=== PATIENT | female | born 1990 | race Caucasian/White ===

== ENCOUNTER 2020-03-23 15:20 | Emergency (ER) | payer OTHER ==
[2020-03-23 15:42] VITALS: BMI 21.4
[2020-03-23] MEDS ORDERED: LACTATED RINGERS SOLUTION 1000 ML INFUS.BAG IV ONE (16:04)
[2020-03-23] MEDS ORDERED: PROMETHAZINE HCL 25 MG SUPPOSITORY PR ONE (17:05)
[2020-03-23] MEDS ORDERED: PROMETHAZINE HCL 25 MG/1 ML VIAL IVPB ONE (17:37)
[2020-03-23] MEDS ORDERED: PROMETHAZINE HCL 25 MG/1 ML VIAL ONE (18:23)
[2020-03-23 18:44] LABS: BASO % 0.9 % (0-2.0); EOS % 0.2 % (0-4.5); HEMATOCRIT 30.5 % (32.4-45.2); HEMOGLOBIN 10.1 GM/dL (10.7-15.3); LYMPH % 16.1 % (8-40); MCH 28.1 pg (25.7-33.7); MCHC 33.1 g/dl (32.0-36.0); MEAN CELL VOLUME 84.8 fl (80-96); MEAN PLT VOLUME 8.2 fl (7.5-11.1); MONO % 4.6 % (3.8-10.2); NEUT % 78.2 % (42.8-82.8); PLATELET COUNT 299 K/MM3 (134-434); RDW 14.8 % (11.6-15.6); WHITE BLOOD COUNT 9.4 K/mm3 (4.0-10.0)
[2020-03-23 19:00] LABS: BILIRUBIN,TOTAL 1.2 mg/dL (0.2-1); BLOOD UREA NITROGEN 10.1 mg/dL (7-18); CALCIUM 7.9 mg/dL (8.5-10.1); CREATININE 0.5 mg/dL (0.55-1.3); POTASSIUM 3.7 mmol/L (3.5-5.1)
[2020-03-23] MEDS ORDERED: MAGNESIUM SULF 50% (8.12 MEQ/2 ML-1 GM VIAL) IVPB ONE (19:22)
[2020-03-23] MEDS ORDERED: MAGNESIUM 1GM/D5W - 1 GM/100 ML IVPB IVPB ONE (19:26)
[2020-03-23 19:38] VITALS: BP 127/74; PULSE 100; TEMP 99.9
[2020-03-23 20:07] LABS: VENOUS BASE EXCESS -5.6 mmol/L (-2-2); VENOUS O2 SATURATION 44.2 % (70-80); VENOUS PCO2 35.7 mmHg (38-52); VENOUS PH 7.352 (7.310-7.410)
[2020-03-23 20:08] LABS: INR 0.96 (0.83-1.09); PROTHROMBIN TIME (PATIENT) 11.3 SEC (9.7-13.0)
== END 2020-03-23 20:20 | disposition home or self-care (01) ==
LOC: JER 15:20
PROC: 3E033NZ Introduction of Analgesics, Hypnotics, Sedatives into Peripheral Vein, Percutaneous Approach (ICD-10-PCS; principal; 2020-03-23)
PROC: 3E033GC Introduction of Other Therapeutic Substance into Peripheral Vein, Percutaneous Approach (ICD-10-PCS; 2020-03-23)
DX: O21.0 Mild hyperemesis gravidarum (principal)
CPT/HCPCS: 36415; 76801-TC; 80053; 82010; 82803; 84702; 85025; 85610; 86850; 86900; 86901; 93005; 93010; 99284-25

== ENCOUNTER 2020-04-03 22:51 | Emergency (ER) | payer OTHER ==
[2020-04-03 22:54] VITALS: TEMP 98.5; BMI 22.8
[2020-04-03] MEDS ORDERED: METOCLOPRAMIDE HCL INJECTION 10 MG/2 ML VIAL IVPB STA (22:54)
[2020-04-03] MEDS ORDERED: SODIUM CHLORIDE 1,000 ML IV STA (22:54)
--- NOTE | 2020-04-03 22:57 | PDOC ---
Rapid Medical Evaluation Chief Complaint: Nausea/Vomiting Time Seen by Provider: 04/03/20 22:53 Medical Evaluation: Allergies Allergy/AdvReac Type Severity Reaction Status Date / Time No Known Allergies Allergy Verified 03/23/20 15:31 04/03/20 22:53 29 year old female c/o persistent vomiting currently 12 weeks . patient has been vomiting since this morning. patient is a IDDM . last [id number] at home. denies vaginal bleeding abdominal pain Pe; patient alert pale, lips dry A: hyperemesis? P: labs IVF reglan 04/03/20 22:56 Discharge Disposition - Diagnosis Hyperemesis gravidarum, Insulin dependent diabetes mellitus - Referrals - Patient Instructions - Post Discharge Activity
[2020-04-03] MEDS ORDERED: METOCLOPRAMIDE HCL INJECTION 10 MG/2 ML VIAL ONE (23:13)
--- NOTE | 2020-04-03 23:22 | PDOC ---
History of Present Illness - General Chief Complaint: Nausea/Vomiting Stated Complaint: 12 WEEKS Time Seen by Provider: 04/03/20 22:53 History Source: Patient Exam Limitations: No Limitations - History of Present Illness Initial Comments: 04/03/20 23:21 Hugo Patel is a 29F with PMH 12 weeks and T1DM presenting with N/V. Has been seen here at [facility] last week, sent from [place] due to no URGENT CARE PHYSICIAN ASSISTANT coverage, evaluated and treated for hyperemesis gravidarum, mulitiple different medications needed to control nausea, sent home on Zofran SL and Phenergan MN. Has been having decreased PO and almost constant nausea and vomiting, no diarrhea, has constipation, no urinary sx or vaginal discharge/bleeding, no abd pain/chest pain/SOB. First time , seen by Dr. Paola Mckoy in [place]. T1DM under control, BGM <170 most days, has had DKA in the past but currently denies feeling like DKA. Denies alcohol/drugs/smoking. NKDA No prior surgeries. Past History - Medical History Allergies/Adverse Reactions: Allergies Allergy/AdvReac Type Severity Reaction Status Date / Time No Known Allergies Allergy Verified 04/03/20 22:54 Home Medications: Ambulatory Orders Promethazine HCl [Phenergan Suppository -] 12.5 mg RC BID #21 supp.rect 03/23/20 Ondansetron [Zofran *Odt*] 4 mg GT TID PRN #21 tab.rapdis 04/04/20 Promethazine HCl [Phenergan -] 25 mg PO TID #21 tablet 04/04/20 COPD: No Diabetes: Yes Psychiatric Problems: No (uses marijuana daily) - Surgical History Cholecystectomy: Yes - Psycho-Social/Smoking History Smoking History: Never smoked Have you smoked in the past 12 months: Yes If you are a former smoker, when did you quit?: 01/2020 - Substance Abuse Hx (Audit-C & DAST Scrn) How often the patient has a drink containing alcohol: Never Score: In Men: 4 or > Positive; In Women: 3 or > Positive: 0 Screen Result (Pos requires Nsg. Audit-10AR): Negative Review of Systems - Review of Systems Able to Perform ROS?: Yes Constitutional: Yes: Chills. No: Fever, Night Sweats, Weakness HEENTM: No: Symptoms Reported Respiratory: No: Cough, Shortness of Breath, SOB with Exertion, SOB at Rest Cardiac (ROS): No: Chest Pain, Edema, Irregular Heart Rate, Lightheadedness, Palpitations, Syncope ABD/GI: Yes: Constipated, Nausea, Poor Appetite, Poor Fluid Intake, Vomiting. No: Diarrhea : No: Burning, Dysuria, Discharge Musculoskeletal: No: Symptoms Reported Integumentary: No: Symptoms Reported Neurological: Yes: Headache. No: Numbness, Paresthesia, Weakness Endocrine: Yes: Intolerance to Cold Hematologic/Lymphatic: No: Symptoms Reported All Other Systems: Reviewed and Negative *Physical Exam - Vital Signs Last Vital Signs Temp Pulse Resp BP Pulse Ox 98.5 F 110 H 18 163/94 100 04/03/20 22:52 04/03/20 22:52 04/03/20 22:52 04/03/20 22:52 04/03/20 22:52 - Physical Exam General Appearance: Yes: Nourished, Appropriately Dressed, Moderate Distress, Thin HEENT: positive: EOMI, JIN, Normal Voice, Symmetrical, Pharynx Normal, Hearing Grossly Normal. negative: Scleral Icterus (R), Scleral Icterus (L), Pharyngeal Erythema, Tonsillar Exudate, Tonsillar Erythema Neck: positive: Trachea midline, Normal Thyroid, Supple. negative: Tender, Lymphadenopathy (R), Lymphadenopathy (L) Respiratory/Chest: positive: Lungs Clear, Normal Breath Sounds. negative: Chest Tender, Respiratory Distress, Accessory Muscle Use, Crackles, Rales, Rhonchi, Stridor, Wheezing Cardiovascular: positive: Regular Rhythm, Tachycardia. negative: Edema, Murmur Gastrointestinal/Abdominal: positive: Normal Bowel Sounds, Flat, Soft, Hernia (periumbilcal), Other (no obvious uterine fundus consistent with gestational age). negative: Tender, Protuberent, Distended, Guarding, Rebound Musculoskeletal: positive: Normal Inspection. negative: CVA Tenderness, CVA Tenderness (R), CVA Tenderness (L), Muscle Spasm, Vertebral Tenderness Extremity: positive: Normal Capillary Refill, Normal Inspection, Normal Range of Motion, Pelvis Stable. negative: Tender, Pedal Edema, Swelling Integumentary: positive: Normal Color, Dry Neurologic: positive: Fully Oriented, Alert, Normal Mood/Affect, Normal Response, Motor Strength 5/5 ED Treatment Course - LABORATORY CBC & Chemistry Diagram: 04/03/20 23:30 04/03/20 23:30 Medical Decision Making - Medical Decision Making 04/03/20 23:52 Patient here for N/V for the second time in the last 2 weeks related to 12 weeks , has known history of both T1DM and hyperemesis gravidarum, BGM 150s, more likely to be -related, getting DKA labs and giving 1L NS bolus with Reglan for N/V, will CTM N/V and PO challenge when appropriate. 04/04/20 00:20 Labs notable for: - CBC WNL - CMP WNL - glucose 180s - VBG WNL - HCG 88461 - ketones 13 04/04/20 01:51 Labs WNL. No DKA. Consistent with -related emesis. Will manage. Still nauseated. Giving Zofran IV and another 1L NS. Will PO challenge and likely d/c home with SL Zofran and Phenergan. 04/04/20 03:47 Drinking water. VS improved. Feeling better. Did not know OBGYN could prescribe nausea meds, now aware. Stable for d/c home with OBGYN f/u. Discharge - Discharge Information Problems reviewed: Yes Clinical Impression/Diagnosis: Hyperemesis gravidarum, Insulin dependent diabetes mellitus - Admission No - Additional Discharge Information Prescriptions: Promethazine HCl [Phenergan -] 25 mg PO TID #21 tablet Ondansetron [Zofran *Odt*] 4 mg GT TID PRN #21 tab.rapdis PRN Reason: Nausea - Follow up/Referral - Patient Discharge Instructions Patient Printed Discharge Instructions: DI for Hyperemesis Gravidarum Additional Instructions: Today you were evalauted for nausea and vomiting with . We have given you IV fluids, Zofran, and Reglan and you felt better. At home, please try and take your anti-nausea medications and eat enough to keep you and your baby healthy. See your URGENT CARE PHYSICIAN ASSISTANT in the next week for further care. If you experience any worsening nausea, vomiting, abdominal pain, chest pain, diarrhea, or any other new or concerning symptoms, please return to the emergency room. - Post Discharge Activity Work/Back to School Note: Back to Work
[2020-04-03 23:45] LABS: VENOUS BASE EXCESS -1.3 mmol/L (-2-2); VENOUS PH 7.338 (7.310-7.410)
[2020-04-03 23:47] LABS: BASO % 1.1 % (0-2.0); EOS % 0.8 % (0-4.5); HEMATOCRIT 32.8 % (32.4-45.2); HEMOGLOBIN 10.9 GM/dL (10.7-15.3); LYMPH % 14.8 % (8-40); MCH 28.3 pg (25.7-33.7); MCHC 33.3 g/dl (32.0-36.0); MEAN PLT VOLUME 7.6 fl (7.5-11.1); MONO % 4.7 % (3.8-10.2); NEUT % 78.6 % (42.8-82.8); PLATELET COUNT 325 K/MM3 (134-434); RBC 3.86 M/mm3 (3.60-5.2); RDW 15.1 % (11.6-15.6)
--- NOTE | 2020-04-03 23:52 | PDOC ---
Documentation entered by Celia Rothman SCRIBE, acting as scribe for Judi Alvarenga MD. Judi Alvarenga MD: This documentation has been prepared by the Lorna hutchison Brenda, SCRIBE, under my direction and personally reviewed by me in its entirety. I confirm that the documentation accurately reflects all work, treatment, procedures, and medical decision making performed by me. Attending Attestation - Resident Resident Name: DylanDarron - ED Attending Attestation I have performed the following: I have examined & evaluated the patient, The case was reviewed & discussed with the resident, I agree w/resident's findings & plan, Exceptions are as noted - HPI HPI: 04/03/20 23:48 29 yo female p/w hyperemesis,She is approximately 7 weeks and is an insulin dependent diabetic - Physicial Exam PE: 04/03/20 23:49 thin 29 yo female p/w nausea and vomiting head ncat ++dry mucus membranes neck supple lungs cta b/l cvs tachycardia abdomen flat, nontender skin warm and dry neuro axox3, no gross focal neuro deficits 04/03/20 23:52 - Medical Decision Making 04/03/20 23:52 plan IVF,labs,reglan 04/03/20 23:53 04/04/20 00:20 Patient has NO pelvic Cramping or vaginal bleeding at this time Glucose is less than 200 CBC is within normal limits Patient receiving IVF, reglan no DKA imp hyperemeisis /diabetes Discharge - Discharge Information Problems reviewed: Yes Clinical Impression/Diagnosis: Hyperemesis gravidarum, Insulin dependent diabetes mellitus Condition: Improved Disposition: HOME - Additional Discharge Information Prescriptions: Promethazine HCl [Phenergan -] 25 mg PO TID #21 tablet Ondansetron [Zofran *Odt*] 4 mg SL TID #30 od.tablet - Follow up/Referral - Patient Discharge Instructions Patient Printed Discharge Instructions: DI for Hyperemesis Gravidarum Additional Instructions: Today you were evalauted for nausea and vomiting with . We have given you IV fluids, Zofran, and Reglan and you felt better. At home, please try and take your anti-nausea medications and eat enough to keep you and your baby hea lthy. See your BLOW OFF WORKER in the next week for further care. If you experience any worsening nausea, vomiting, abdominal pain, chest pain, diarrhea, or any other new or concerning symptoms, please return to the emergency room. - Post Discharge Activity Work/Back to School Note: Back to Work
[2020-04-04 00:16] LABS: ALBUMIN 3.3 g/dl (3.4-5.0); BILIRUBIN,TOTAL 0.8 mg/dL (0.2-1); BLOOD UREA NITROGEN 15.9 mg/dL (7-18); CALCIUM 9.2 mg/dL (8.5-10.1); CREATININE 0.6 mg/dL (0.55-1.3); POTASSIUM 4.1 mmol/L (3.5-5.1); TOT PROT 6.9 g/dl (6.4-8.2)
[2020-04-04] MEDS ORDERED: ONDANSETRON 4 MG/2 ML VIAL IVPB ONE (01:17)
[2020-04-04 05:56] VITALS: BP 148/88; PULSE 100
== END 2020-04-04 04:10 | disposition home or self-care (01) ==
LOC: JER 22:51
PROC: 3E0337Z Introduction of Electrolytic and Water Balance Substance into Peripheral Vein, Percutaneous Approach (ICD-10-PCS; principal; 2020-04-03)
PROC: 3E033GC Introduction of Other Therapeutic Substance into Peripheral Vein, Percutaneous Approach (ICD-10-PCS; principal; 2020-04-03)
PROC: 3E033GC Introduction of Other Therapeutic Substance into Peripheral Vein, Percutaneous Approach (ICD-10-PCS; 2020-04-04)
DX: O21.0 Mild hyperemesis gravidarum (principal); O24.011 Pre-existing type 1 diabetes mellitus, in pregnancy, first trimester; Z3A.12 12 weeks gestation of pregnancy
CPT/HCPCS: 36415; 80053; 82010; 82803; 82962; 84702; 85025; 99284-25

== ENCOUNTER 2020-05-22 08:34 | Inpatient (IN) | payer OTHER ==
--- NOTE | 2020-05-22 08:54 | PDOC ---
History of Present Illness - General Stated Complaint: NAUSEA VOMITING - History of Present Illness Initial Comments: 29 yo female A0 and PMH of IDDM who is 19 weeks presents with nausea/vomiting. She has been having n/v since her started but it has worsened in the last 2 weeks. Her vomit has been bilious at times but she denies blood. She endorses fevers, vertigo, and constipation. She denies abdominal pain, vaginal bleeding, cp, sob. She last took her insulin 24 hour ago in the morning. She was seen at [facility] 7 hours ago who prescribed her with zofran, reglan, and meclizine without complete resolution of her symptoms and thus transfered here for our COMMERCIAL PARTS PROFESSIONAL services. Her last zofran was at 3am. She was found to be hypokalemic and given K supplement. She follows with Dr. Lizbeth Mckoy for COMMERCIAL PARTS PROFESSIONAL. 05/22/20 09:43 Past History - Medical History Allergies/Adverse Reactions: Allergies Allergy/AdvReac Type Severity Reaction Status Date / Time apples Allergy Uncoded 05/22/20 08:50 Home Medications: Ambulatory Orders Analogue 0 units SQ QID 05/22/20 Insulin Glargine,Hum.rec.anlog [Basaglar Kwikpen U-100] 16 unit SQ HS 05/22/20 COPD: No Diabetes: Yes Psychiatric Problems: No (uses marijuana daily) - Surgical History Cholecystectomy: Yes - Psycho-Social/Smoking History Smoking History: Never smoked Have you smoked in the past 12 months: Yes If you are a former smoker, when did you quit?: 01/2020 Review of Systems - Review of Systems Constitutional: Yes: Chills. No: Fever HEENTM: No: Recent change in vision, Double Vision Respiratory: No: Cough, Orthopnea, Shortness of Breath Cardiac (ROS): No: Chest Pain, Palpitations : Yes: Discharge. No: Burning, Dysuria, Hematuria Musculoskeletal: No: Joint Swelling, Muscle Pain Integumentary: No: Erythema, Flushing, Lesions Neurological: Yes: Dizziness. No: Headache, Numbness, Weakness Psychiatric: No: Anxiety, Depression, Mood Swings Endocrine: No: Intolerance to Cold, Intolerance to Heat, Increased Urine *Physical Exam - Physical Exam General Appearance: Yes: Appropriately Dressed, Apparent Distress HEENT: positive: Normal ENT Inspection. negative: EOMI Neck: negative: Tender, Rigid Respiratory/Chest: positive: Lungs Clear, Normal Breath Sounds. negative: Respiratory Distress Cardiovascular: positive: Regular Rhythm, Regular Rate, S1, S2 Gastrointestinal/Abdominal: positive: Flat, Soft. negative: Tender Musculoskeletal: positive: Normal Inspection. negative: CVA Tenderness Extremity: positive: Normal Capillary Refill, Normal Inspection, Normal Range of Motion Integumentary: positive: Normal Color, Dry, Warm Neurologic: positive: Fully Oriented, Alert, Normal Mood/Affect ED Treatment Course - LABORATORY CBC & Chemistry Diagram: 05/22/20 09:15 05/22/20 09:15 Medical Decision Making - Medical Decision Making 29 yo female A0 and PMH of IDDM who is 19 weeks presents with nausea/vomiting for 2 weeks after being transferred from [facility]. 1L fluid bolus Pt has prolonged QT and will not receive any more zofran. Pt has hypokalemia and given replacement. Discussed the case with Dr. Singh who wanted her admitted under her service. POCUS shows normal HR and movement with head diameter consistent with 19 weeks gestation. Discharge - Discharge Information Problems reviewed: Yes Clinical Impression/Diagnosis: Hyperemesis gravidarum Condition: Stable - Admission Yes - Follow up/Referral - Patient Discharge Instructions - Post Discharge Activity
[2020-05-22] MEDS ORDERED: SODIUM CHLORIDE 500 ML IV STA (09:14)
[2020-05-22] MEDS ORDERED: ONDANSETRON 4 MG/2 ML VIAL IVPUSH ONE (09:32)
--- NOTE | 2020-05-22 10:18 | EKG ---
Test Reason : Blood Pressure : / mmHG Vent. Rate : 102 BPM Atrial Rate : 441 BPM P-R Int : 000 ms QRS Dur : 092 ms QT Int : 422 ms P-R-T Axes : -10 -08 178 degrees QTc Int : 550 ms ATRIAL FLUTTER LEFT VENTRICULAR HYPERTROPHY WITH REPOLARIZATION ABNORMALITY INFERIOR INFARCT , AGE UNDETERMINED PROLONGED QT ABNORMAL ECG WHEN COMPARED WITH ECG OF 23-MAR-2020 16:53, ATRIAL FLUTTER HAS REPLACED SINUS RHYTHM INFERIOR INFARCT IS NOW PRESENT T WAVE INVERSION NOW EVIDENT IN LATERAL LEADS QT HAS LENGTHENED Confirmed by MD Celestino, Lenny ([id number]) on 05/22/2020 10:17:51 AM Referred By: Confirmed By:Lenny Tirado MD
[2020-05-22 11:00] LABS: HCG,QUALITATIVE URINE Positive
[2020-05-22 11:02] LABS: HEMATOCRIT 32.6 % (32.4-45.2); MCH 28.1 pg (25.7-33.7); MCHC 33.7 g/dl (32.0-36.0); MEAN CELL VOLUME 83.4 fl (80-96); MEAN PLT VOLUME 8.2 fl (7.5-11.1); PLATELET COUNT 312 K/MM3 (134-434); RBC 3.91 M/mm3 (3.60-5.2); RDW 13.6 % (11.6-15.6); WHITE BLOOD COUNT 13.5 K/mm3 (4.0-10.0)
--- NOTE | 2020-05-22 11:03 | PDOC ---
Documentation entered by John Mc SCRIBE, acting as scribe for Mimi Alvarez MD. Mimi Alvarez MD: This documentation has been prepared by the Kaya hutchison inJohn SCRIBE, under my direction and personally reviewed by me in its entirety. I confirm that the documentation accurately reflects all work, treatment, procedures, and medical decision making performed by me. Attending Attestation - Resident Resident Name: ArchanaWukatie - ED Attending Attestation I have performed the following: I have examined & evaluated the patient, The case was reviewed & discussed with the resident, I agree w/resident's findings & plan, Exceptions are as noted - HPI HPI: 05/22/20 09:54 The patient is a 29 year old female (A0, 19 weeks ) with a significant past medical history of type 1 DM who presents to the emergency department for evaluation of nausea/vomiting that began at the start of her but has worsened in the past 2 weeks. The patient reports bilious vomit associated with fevers, vertigo, and constipation. The patient went to [facility] 7 hours ago for these symptoms where she was given zofran (last given: 7 hours ago), reglan, and meclizine to minimal relief. The patient denies chest/abdominal/back pain, cough, and shortness of breath. Denies any symptoms. Denies any other symptoms. Allergies: apples Social Hx: Patient reports smoking marijuana every day. 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 Lizbeth cMkoy - Physicial Exam PE: 05/22/20 09:54 GENERAL: Awake, alert, and fully oriented, in no acute distress HEAD: No signs of trauma EYES: PERRLA, EOMI, sclera anicteric, conjunctiva clear ENT: Auricles normal inspection, hearing grossly normal, nares patent, oropharynx clear without exudates. Moist mucosa NECK: Normal ROM, supple, no lymphadenopathy, JVD, or masses LUNGS: Breath sounds equal, clear to auscultation bilaterally. No wheezes, and no crackles HEART: Regular rate and rhythm, normal S1 and S2, no murmurs, rubs or gallops ABDOMEN: Soft, nontender, normoactive bowel sounds. No guarding, no rebound. No masses EXTREMITIES: Normal range of motion, no edema. No clubbing or cyanosis. No cords, erythema, or tenderness NEUROLOGICAL: Cranial nerves II through XII grossly intact. Normal speech, normal gait SKIN: Warm, Dry, normal turgor, no rashes or lesions noted. - Medical Decision Making 05/22/20 10:51 Pt presents to the ED complaining of severe nausea and vomiting, not improved with zofran and reglan at [place]. Transferred here for OB admision. Multiple visits to the ED for similar complaints. Patient continued to feel nauseated, but will hold off on more antiemetics for now given her prolonged QT. Will continue IV hydration. Discharge - Discharge Information Problems reviewed: Yes Clinical Impression/Diagnosis: Hyperemesis gravidarum Condition: Stable - Follow up/Referral - Patient Discharge Instructions - Post Discharge Activity
[2020-05-22 11:04] LABS: EPI CELLS 31 /uL (0-25.1); HYALINE CASTS 0 /uL (0-3.1); URINE APPEARANCE CLEAR; URINE BACTERIA 766 /uL (0-1359); URINE BILIRUBIN NEGATIVE (NEGATIVE); URINE COLOR YELLOW; URINE GLUCOSE (UA) 1+ (NEGATIVE); URINE KETONE 4+ (NEGATIVE); URINE LEUK ESTERASE TRACE (NEGATIVE); URINE NITRITE NEGATIVE (NEGATIVE); URINE PROTEIN 2+ (NEGATIVE); URINE RBC 48 /uL (0-23.9); URINE WBC 24 /uL (0-25.8)
[2020-05-22 11:30] LABS: ALBUMIN 2.2 g/dl (3.4-5.0); BILIRUBIN,TOTAL 1.4 mg/dL (0.2-1); BLOOD UREA NITROGEN 11.3 mg/dL (7-18); CALCIUM 7.4 mg/dL (8.5-10.1); CREATININE 0.7 mg/dL (0.55-1.3); MAGNESIUM 1.7 mg/dL (1.8-2.4); PHOSPHOROUS 1.6 mg/dL (2.5-4.9); TOT PROT 5.3 g/dl (6.4-8.2)
[2020-05-22 11:50] LABS: POTASSIUM 2.8 mmol/L (3.5-5.1)
[2020-05-22] MEDS ORDERED: SODIUM CHLORIDE 1,000 ML IV STA (12:11)
[2020-05-22] MEDS: KCL 10 MEQ IVPB 10 MEQ/100 ML INFUS.BAG IVPB SCH ×4 (12:25→23:53)
[2020-05-22] MEDS ORDERED: MAGNESIUM SULF 50% (8.12 MEQ/2 ML-1 GM VIAL) IVPB ONE (18:21)
[2020-05-22] MEDS ORDERED: CALCIUM GLUCONATE 10% - 1,000 MG/10 ML VIAL IVPUSH ONE (18:27)
--- NOTE | 2020-05-22 18:52 | HP ---
Past Medical History - Admission Chief Complaint: Vomitting, excesive weight loss. 19 weeks. No PNC. Multiple ED visits History of Present Illness: 29 yo @ 19 weeks transfer to [facility] from [facility] ED due to lack of care, Hyperemesis gravidarum, Type 1 DM Excessive weight loss Constipation History Source: Patient, Family Member Limitations to Obtaining History: No Limitations - Past Medical History ...: 1 Endocrine: Yes: Diabetes Mellitus (Type 1 DM) - Past Surgical History Past Surgical History: Yes: None Hx Myomectomy: No Hx Transabdominal Cerclage: No - Smoking History Smoking history: Never smoked Have you smoked in the past 12 months: Yes If you are a former smoker, when did you quit?: 01/2020 - Alcohol/Substance Use Hx Alcohol Use: No History of Substance Use: reports: Marijuana - Social History Usual Living Arrangement: Yes: With Significant Other History of Recent Travel: No Home Medications - Allergies Allergies/Adverse Reactions: Allergies Allergy/AdvReac Type Severity Reaction Status Date / Time apples Allergy Uncoded 05/22/20 08:50 - Home Medications Home Medications: Ambulatory Orders Analogue 0 units SQ QID 05/22/20 Insulin Glargine,Hum.rec.anlog [Basaglar Kwikpen U-100] 16 unit SQ HS 05/22/20 Family Medical History Family History: Unremarkable Review of Systems - Review of Systems Constitutional: reports: Loss of Appetite, Weakness Eyes: reports: No Symptoms HENT: reports: No Symptoms Neck: reports: No Symptoms Cardiovascular: reports: No Symptoms Respiratory: reports: No Symptoms Gastrointestinal: reports: No Symptoms Genitourinary: reports: No Symptoms Breasts: reports: No Symptoms Reported Musculoskeletal: reports: No Symptoms Integumentary: reports: No Symptoms Endocrine: reports: No Symptoms Hematology/Lymphatic: reports: No Symptoms Psychiatric: reports: No Symptoms Physical Exam - Maternity Vital Signs: Vital Signs Temperature 98.8 F 05/22/20 15:58 Pulse Rate 106 H 05/22/20 17:24 Respiratory Rate 16 05/22/20 17:24 Blood Pressure 147/87 05/22/20 17:24 O2 Sat by Pulse Oximetry (%) 100 05/22/20 15:58 Constitutional: Yes: Anxious Neck: Yes: WNL - Abdominal Exam/OB Fundal Height: 18 - Labs Lab Results: CBC, BMP 05/22/20 09:15 05/22/20 09:15 Hemorrhage Risk Assessment - Risk Factors Risk Score: 1 Risk Level: Medium Risk Problem List - Problems (1) 19 weeks gestation of Code(s): Z3A.19 - 19 WEEKS GESTATION OF (2) No care in current Code(s): O09.30 - SUPRVSN OF PREG W INSUFFICIENT ANTENAT CARE, UNSP TRIMESTER (3) Excessive weight loss Code(s): R63.4 - ABNORMAL WEIGHT LOSS Assessment/Plan Admit to antepartum service Diabetic diet - full liquid Sliding scale FS Daily weight Consultation with medical service - insulin treatment Nutrition consultation
[2020-05-22 21:00] LABS: BILIRUBIN,TOTAL 1.4 mg/dL (0.2-1); BLOOD UREA NITROGEN 6.1 mg/dL (7-18); CALCIUM 7.3 mg/dL (8.5-10.1); CREATININE 0.5 mg/dL (0.55-1.3); MAGNESIUM 1.5 mg/dL (1.8-2.4); PHOSPHOROUS 1.4 mg/dL (2.5-4.9); TOT PROT 5.2 g/dl (6.4-8.2)
[2020-05-22 21:04] LABS: POTASSIUM 2.7 mmol/L (3.5-5.1)
[2020-05-22] MEDS ORDERED: KCL 10 MEQ IVPB 10 MEQ/100 ML INFUS.BAG IVPB SCH (21:45)
[2020-05-22] MEDS ORDERED: POTASSIUM PHOSPHATE 30 MM in SODIUM CHLORIDE 500 ML IVPB ONE (22:00)
[2020-05-23] MEDS: KCL 10 MEQ IVPB 10 MEQ/100 ML INFUS.BAG IVPB SCH ×2 (01:24→02:20)
[2020-05-23 02:04] LABS: OPIATES, URI NEGATIVE ng/ml (CUTOFF=300); PHENCYCLIDINE,URINE NEGATIVE ng/ml (CUTOFF=25); URINE BARBITURATES NEGATIVE ng/ml (CUTOFF=200)
[2020-05-23 02:16] LABS: COCAINE, UR NEGATIVE ng/ml (CUTOFF=300); METHADONE, UR NEGATIVE ng/ml (CUTOFF=300); URINE AMPHETAMINES NEGATIVE ng/ml (CUTOFF=500); URINE BENZODIAZEPINES NEGATIVE ng/ml (CUTOFF=200)
[2020-05-23] MEDS ORDERED: CALCIUM CARBONATE 650 MG TABLET PO PRN (03:44)
--- NOTE | 2020-05-23 03:44 | PN ---
Teaching Attending Note Name of Resident: Kenneth Garica ATTENDING PHYSICIAN STATEMENT I saw and evaluated the patient. I reviewed the resident's note and discussed the case with the resident. I agree with the resident's findings and plan as documented. SUBJECTIVE: OBJECTIVE: ASSESSMENT AND PLAN: Date of Service: 05/22/2020 29 year old female @ 19 weeks transfer to [facility] from [facility] ED due to lack of care, Hyperemesis gravidarum, Type 1 DM PLAN # Hyperemesis gravidarum- IV fluid hydration further management as per OB, monitor QTc with anti-emetics # Hypokalemia- replace , repeat lytes in several hours # Leukocytosis- mild for now follow, no indication for infection Thank you for the courtesy of this consult, will follow along with you
--- NOTE | 2020-05-23 06:13 | CONSULT ---
Consultation: REQUESTING PROVIDER: CONSULT REQUEST: We have been asked to medically evaluate this patient for nausea and vomiting. HISTORY OF PRESENT ILLNESS: 29 year old female patient with past medical history that includes IDDM, 19 weeks , and marijuana use, who was transferred here from [facility] due to nausea and nonbloody vomiting for 2 weeks. The patient reports vomiting greenish-yellowish fluid over 10 times per day, with no abdominal pain. She was given Zofran in [facility], which did not succeed in alleviating the patient's symptoms. She also reported being upset that a Google search by her found that Zofran may be associated with an increased risk for defects. Today, the patient reports only being able to eat 10% of her full liquid diet in the evening. She feels dehydrated, has no appetite, and has a feeling of a rapid heart rate in her chest. Her heart racing has happened from time to time for over a year, and can make the feelings of nausea worse when it happens. ECG read her heart rhythm as an atrial flutter with prolonged QTc and left ventricular hypertrophy. The patient smokes marijuana daily and reports that it gives her relief from her nausea for a few hours, but then the nausea comes back. Her last use of marijuana was 5 days ago. She denies ever having similar symptoms of nausea and vomiting in the past. REVIEW OF SYSTEMS: CONSTITUTIONAL: chills, loss of appetite, feels dehydrated Absent: no fever HEENT: Absent: no loss of smell CARDIOVASCULAR: palpitations Absent: no chest pain RESPIRATORY: Absent: no shortness of breath GASTROINTESTINAL: heart burn, nausea, vomiting greenish-yellowish fluid x10+ episodes per day Absent: no abdominal pain, no diarrhea PHYSICAL EXAMINATION Vital Signs - 24 hr 05/22/20 05/22/20 05/22/20 08:58 10:25 12:15 Temperature 98 F Pulse Rate 92 H Pulse Rate [ 94 H Radial] Respiratory 18 16 Rate Blood Pressure 142/88 Blood Pressure 132/85 [Left Arm] O2 Sat by Pulse 99 100 100 Oximetry (%) 05/22/20 05/22/20 05/22/20 15:50 15:58 17:24 Temperature 98.8 F Pulse Rate 106 H Pulse Rate [ 96 H 89 Radial] Respiratory 16 18 16 Rate Blood Pressure 147/87 Blood Pressure 136/79 136/76 [Left Arm] O2 Sat by Pulse 100 100 Oximetry (%) 05/22/20 05/23/20 05/23/20 21:52 01:41 05:19 Temperature 98.4 F 98.2 F 98.4 F Pulse Rate 100 H 84 90 Pulse Rate [ Radial] Respiratory 20 20 20 Rate Blood Pressure 143/87 141/75 154/88 Blood Pressure [Left Arm] O2 Sat by Pulse Oximetry (%) GENERAL: A&O x 3, in no acute distress, but looking very fatigued. HEAD: Normal with no signs of trauma. EYES: Pupils equal, round and reactive to light, extraocular movements intact, sclera anicteric, conjunctiva clear. No lid lag. EARS, NOSE, THROAT: Ears normal, nares patent, oropharynx clear without exudates. Dry mucous membranes. No posterior throat erythema. NECK: Normal range of motion, supple without lymphadenopathy, JVD, or masses. LUNGS: Breath sounds equal, clear to auscultation bilaterally. No wheezes, and n o crackles. No accessory muscle use. HEART: Tachycardic. Regular rhythm, normal S1 and S2 without murmur, rub or gallop. ABDOMEN: Soft, nontender, not distended, normoactive bowel sounds, no guarding, no rebound, no masses. Patient reports feeling nausea on palpation of abdomen. MUSCULOSKELETAL: Normal range of motion at all joints. No bony deformities or tenderness. UPPER EXTREMITIES: 2+ pulses, warm, well-perfused. No cyanosis. No clubbing. Cap refill <2 seconds. No peripheral edema. LOWER EXTREMITIES: 2+ pulses, warm, well-perfused. No calf tenderness. No peripheral edema. NEUROLOGICAL: Cranial nerves II-XII intact. Normal speech. Normal gait. PSYCHIATRIC: Cooperative. Good eye contact. Appropriate mood and affect. SKIN: Warm, dry, normal turgor, no rashes or lesions noted. Laboratory Results - last 24 hr 05/22/20 05/22/20 05/22/20 09:15 09:15 09:56 WBC 13.5 H RBC 3.91 Hgb 11.0 Hct 32.6 MCV 83.4 MCH 28.1 MCHC 33.7 RDW 13.6 Plt Count 312 MPV 8.2 Sodium 135 L Potassium 2.8 L* Chloride 97 L Carbon Dioxide 20 L Anion Gap 18 H BUN 11.3 Creatinine 0.7 Est GFR (CKD-EPI)AfAm 135.70 Est GFR (CKD-EPI)NonAf 117.08 POC Glucometer 156 Random Glucose 165 H Calcium 7.4 L Phosphorus 1.6 L Magnesium 1.7 L Total Bilirubin 1.4 H AST 77 H ALT 118 H Alkaline Phosphatase 87 Total Protein 5.3 L Albumin 2.2 L Urine Color Urine Appearance Urine pH Ur Specific Eden Urine Protein Urine Glucose (UA) Urine Ketones Urine Blood Urine Nitrite Urine Bilirubin Urine Urobilinogen Ur Leukocyte Esterase Urine WBC (Auto) Urine RBC (Auto) Urine Casts (Auto) U Epithel Cells (Auto) Urine Bacteria (Auto) Urine HCG, Qual Opiates Screen Methadone Screen Barbiturate Screen Phencyclidine Screen Ur Amphetamines Screen MDMA (Ecstasy) Screen Benzodiazepines Screen Cocaine Screen U Marijuana (THC) Screen 05/22/20 05/22/20 05/22/20 10:15 17:16 19:50 WBC RBC Hgb Hct MCV MCH MCHC RDW Plt Count MPV Sodium 137 Potassium 2.7 L* Chloride 100 Carbon Dioxide 21 Anion Gap 16 BUN 6.1 L Creatinine 0.5 L Est GFR (CKD-EPI)AfAm 151.59 Est GFR (CKD-EPI)NonAf 130.79 POC Glucometer 133 Random Glucose 161 H Calcium 7.3 L Phosphorus 1.4 L Magnesium 1.5 L Total Bilirubin 1.4 H AST 79 H ALT 116 H Alkaline Phosphatase 89 Total Protein 5.2 L Albumin 2.0 L Urine Color Yellow Urine Appearance Clear Urine pH 7.0 Ur Specific Eden 1.010 Urine Protein 2+ H Urine Glucose (UA) 1+ H Urine Ketones 4+ H Urine Blood 1+ H Urine Nitrite Negative Urine Bilirubin Negative Urine Urobilinogen 1.0 Ur Leukocyte Esterase Trace Urine WBC (Auto) 24 Urine RBC (Auto) 48 Urine Casts (Auto) 0 U Epithel Cells (Auto) 31 Urine Bacteria (Auto) 766 Urine HCG, Qual Positive Opiates Screen Methadone Screen Barbiturate Screen Phencyclidine Screen Ur Amphetamines Screen MDMA (Ecstasy) Screen Benzodiazepines Screen Cocaine Screen U Marijuana (THC) Screen 05/22/20 05/23/20 05/23/20 21:47 00:00 01:28 WBC RBC Hgb Hct MCV MCH MCHC RDW Plt Count MPV Sodium Potassium Chloride Carbon Dioxide Anion Gap BUN Creatinine Est GFR (CKD-EPI)AfAm Est GFR (CKD-EPI)NonAf POC Glucometer 195 162 Random Glucose Calcium Phosphorus Magnesium Total Bilirubin AST ALT Alkaline Phosphatase Total Protein Albumin Urine Color Urine Appearance Urine pH Ur Specific Eden Urine Protein Urine Glucose (UA) Urine Ketones Urine Blood Urine Nitrite Urine Bilirubin Urine Urobilinogen Ur Leukocyte Esterase Urine WBC (Auto) Urine RBC (Auto) Urine Casts (Auto) U Epithel Cells (Auto) Urine Bacteria (Auto) Urine HCG, Qual Opiates Screen Negative Methadone Screen Negative Barbiturate Screen Negative Phencyclidine Screen Negative Ur Amphetamines Screen Negative MDMA (Ecstasy) Screen Negative Benzodiazepines Screen Negative Cocaine Screen Negative U Marijuana (THC) Screen Positive A* 05/23/20 05:24 WBC RBC Hgb Hct MCV MCH MCHC RDW Plt Count MPV Sodium Potassium Chloride Carbon Dioxide Anion Gap BUN Creatinine Est GFR (CKD-EPI)AfAm Est GFR (CKD-EPI)NonAf POC Glucometer 122 Random Glucose Calcium Phosphorus Magnesium Total Bilirubin AST ALT Alkaline Phosphatase Total Protein Albumin Urine Color Urine Appearance Urine pH Ur Specific Eden Urine Protein Urine Glucose (UA) Urine Ketones Urine Blood Urine Nitrite Urine Bilirubin Urine Urobilinogen Ur Leukocyte Esterase Urine WBC (Auto) Urine RBC (Auto) Urine Casts (Auto) U Epithel Cells (Auto) Urine Bacteria (Auto) Urine HCG, Qual Opiates Screen Methadone Screen Barbiturate Screen Phencyclidine Screen Ur Amphetamines Screen MDMA (Ecstasy) Screen Benzodiazepines Screen Cocaine Screen U Marijuana (THC) Screen Active Medications Generic Name Dose Route Start Last Admin Trade Name Freq PRN Reason Stop Dose Admin Calcium Carbonate 650 mg 05/23/20 03:44 05/23/20 05:21 Calcium Carbonate - PO 650 mg ONCE PRN Administration DYSPEPSIA Diphenhydramine HCl 12.5 mg 05/22/20 22:52 05/23/20 00:32 Benadryl Injection - IVPUSH 12.5 mg Q4H PRN Administration NAUSEA AND/OR VOMITING Lactated Ringer's 1,000 mls @ 150 mls/hr 05/22/20 19:00 Lactated Ringers Solution IV ASDIR CHUY Potassium Phosphate 30 mm/ 510 mls @ 62.5 mls/hr 05/22/20 22:00 05/22/20 22:15 Sodium Chloride IVPB 05/23/20 06:09 62.5 mls/hr ONCE ONE Administration Pyridoxine HCl 100 mg 05/22/20 22:54 Vitamin B6 Injection - IM DAILY [facility]ITAL ASSESSMENT/PLAN: 29 year old female patient with past medical history that includes IDDM, 19 weeks , and marijuana use with last use 5 days ago per patient, who was transferred here from [facility] due to nausea and nonbloody vomiting for 2 weeks. 1. Hyperemesis Gravidum - Benadryl and Vitamin B6 - IV Hydration - Repeat ECG to check QTc 2. Hypokalemia - Repleted with KCl - Monitor Electrolytes # FEN - Lactated Ringers. Monitor Electrolytes. Full Liquid Diabetic Diet Visit type - Emergency Visit Emergency Visit: No - New Patient This patient is new to me today: Yes Date on this admission: 05/23/20 - Critical Care Critical Care patient: No ATTENDING PHYSICIAN STATEMENT I saw and evaluated the patient. I reviewed the resident's note and discussed the case with the resident. I agree with the resident's findings and plan as documented. SUBJECTIVE: OBJECTIVE: ASSESSMENT AND PLAN:
[2020-05-23] MEDS: LACTATED RINGERS SOLUTION 1,000 ML IV SCH ×2 (07:52→19:40)
[2020-05-23] MEDS: PYRIDOXINE HCL 100 MG/1 ML VIAL IM SCH (09:44)
[2020-05-23] MEDS ORDERED: PYRIDOXINE HCL 100 MG/1 ML VIAL IM SCH (10:00)
[2020-05-23] MEDS ORDERED: LACTATED RINGERS SOLUTION 1000 ML INFUS.BAG IV SCH (10:00)
[2020-05-23] MEDS ORDERED: CALCIUM CARBONATE 650 MG TABLET PO SCH (10:00)
[2020-05-23 10:50] LABS: BASO % 0.5 % (0-2.0); EOS % 1.4 % (0-4.5); HEMATOCRIT 29.4 % (32.4-45.2); HEMOGLOBIN 10.3 GM/dL (10.7-15.3); MCH 28.7 pg (25.7-33.7); MCHC 35.1 g/dl (32.0-36.0); MEAN CELL VOLUME 81.8 fl (80-96); MONO % 5.8 % (3.8-10.2); NEUT % 67.3 % (42.8-82.8); PLATELET COUNT 283 K/MM3 (134-434); RDW 13.8 % (11.6-15.6); WHITE BLOOD COUNT 10.3 K/mm3 (4.0-10.0)
[2020-05-23 11:14] LABS: BILIRUBIN,TOTAL 1.4 mg/dL (0.2-1); BLOOD UREA NITROGEN 3.2 mg/dL (7-18); CALCIUM 7.9 mg/dL (8.5-10.1); CREATININE 0.3 mg/dL (0.55-1.3); MAGNESIUM 1.5 mg/dL (1.8-2.4); PHOSPHOROUS 2.2 mg/dL (2.5-4.9)
[2020-05-23 11:23] LABS: POTASSIUM 2.7 mmol/L (3.5-5.1)
[2020-05-23] MEDS ORDERED: MAGNESIUM SULF 50% (8.12 MEQ/2 ML-1 GM VIAL) IVPB SCH (11:30)
[2020-05-23] MEDS ORDERED: [UNRECOGNIZED DRUG - OTHER] IVPB SCH (11:30)
[2020-05-23] MEDS ORDERED: POTASSIUM CHLORIDE IVPB SCH (11:30)
[2020-05-23] MEDS ORDERED: D5-1/2NS+40 MEQ KCL - 40 MEQ/1,000 ML INFUS.BAG IV SCH ×2 (11:30)
[2020-05-23] MEDS ORDERED: DEXTROSE IVPB SCH (11:30)
[2020-05-23] MEDS: MAGNESIUM 1GM/D5W - 1 GM/100 ML IVPB IVPB SCH ×2 (13:15→15:24)
[2020-05-23] MEDS ORDERED: POTASSIUM CHLORIDE 40 MEQ in SODIUM CHLORIDE 0.45% 1,000 ML IVPB SCH (13:30)
[2020-05-23] MEDS ORDERED: MAGNESIUM 1GM/D5W - 1 GM/100 ML IVPB IVPB SCH (13:45)
[2020-05-23] MEDS ORDERED: MAGNESIUM SULFATE IVPB SCH (13:45)
[2020-05-23] MEDS ORDERED: SODIUM CHLORIDE 0.45% IVPB SCH (13:45)
--- NOTE | 2020-05-23 14:38 | PN ---
Physical Exam: SUBJECTIVE: Patient seen and examined OBJECTIVE: Vital Signs Period Temp Pulse Resp BP Sys/Glass Pulse Ox Last 24 Hr 98 F-98.8 F 84-106 16-22 136-154/75-88 98-100 GENERAL: The patient is awake, alert, and fully oriented, in no acute distress. HEAD: Normal with no signs of trauma. EYES: PERRL, extraocular movements intact, sclera anicteric, conjunctiva clear. No ptosis. ENT: Ears normal, nares patent, oropharynx clear without exudates, moist mucous membranes. NECK: Trachea midline, full range of motion, supple. LUNGS: Breath sounds equal, clear to auscultation bilaterally, no wheezes, no crackles, no accessory muscle use. HEART: Regular rate and rhythm, S1, S2 without murmur, rub or gallop. ABDOMEN: Soft, nontender, nondistended, normoactive bowel sounds, no guarding, no rebound, no hepatosplenomegaly, no masses. EXTREMITIES: 2+ pulses, warm, well-perfused, no edema. NEUROLOGICAL: Cranial nerves II through XII grossly intact. Normal speech, gait not observed. PSYCH: Normal mood, normal affect. SKIN: Warm, dry, normal turgor, no rashes or lesions noted Laboratory Results - last 24 hr 05/22/20 05/22/20 05/22/20 17:16 19:50 21:47 WBC RBC Hgb Hct MCV MCH MCHC RDW Plt Count MPV Absolute Neuts (auto) Neutrophils % Lymphocytes % Monocytes % Eosinophils % Basophils % Nucleated RBC % Sodium 137 Potassium 2.7 L* Chloride 100 Carbon Dioxide 21 Anion Gap 16 BUN 6.1 L Creatinine 0.5 L Est GFR (CKD-EPI)AfAm 151.59 Est GFR (CKD-EPI)NonAf 130.79 POC Glucometer 133 195 Random Glucose 161 H Hemoglobin A1c % Calcium 7.3 L Phosphorus 1.4 L Magnesium 1.5 L Total Bilirubin 1.4 H AST 79 H ALT 116 H Alkaline Phosphatase 89 Total Protein 5.2 L Albumin 2.0 L TSH Free T4 Opiates Screen Methadone Screen Barbiturate Screen Phencyclidine Screen Ur Amphetamines Screen MDMA (Ecstasy) Screen Benzodiazepines Screen Cocaine Screen U Marijuana (THC) Screen 05/23/20 05/23/20 05/23/20 00:00 01:28 05:24 WBC RBC Hgb Hct MCV MCH MCHC RDW Plt Count MPV Absolute Neuts (auto) Neutrophils % Lymphocytes % Monocytes % Eosinophils % Basophils % Nucleated RBC % Sodium Potassium Chloride Carbon Dioxide Anion Gap BUN Creatinine Est GFR (CKD-EPI)AfAm Est GFR (CKD-EPI)NonAf POC Glucometer 162 122 Random Glucose Hemoglobin A1c % Calcium Phosphorus Magnesium Total Bilirubin AST ALT Alkaline Phosphatase Total Protein Albumin TSH Free T4 Opiates Screen Negative Methadone Screen Negative Barbiturate Screen Negative Phencyclidine Screen Negative Ur Amphetamines Screen Negative MDMA (Ecstasy) Screen Negative Benzodiazepines Screen Negative Cocaine Screen Negative U Marijuana (THC) Screen Positive A* 05/23/20 05/23/20 05/23/20 09:12 10:12 10:12 WBC 10.3 H RBC 3.60 Hgb 10.3 L Hct 29.4 L MCV 81.8 MCH 28.7 MCHC 35.1 RDW 13.8 Plt Count 283 MPV 8.0 Absolute Neuts (auto) 6.9 Neutrophils % 67.3 Lymphocytes % 25.0 D Monocytes % 5.8 Eosinophils % 1.4 Basophils % 0.5 Nucleated RBC % 0 Sodium Potassium Chloride Carbon Dioxide Anion Gap BUN Creatinine Est GFR (CKD-EPI)AfAm Est GFR (CKD-EPI)NonAf POC Glucometer 112 Random Glucose Hemoglobin A1c % 7.5 H Calcium Phosphorus Magnesium Total Bilirubin AST ALT Alkaline Phosphatase Total Protein Albumin TSH Free T4 Opiates Screen Methadone Screen Barbiturate Screen Phencyclidine Screen Ur Amphetamines Screen MDMA (Ecstasy) Screen Benzodiazepines Screen Cocaine Screen U Marijuana (THC) Screen 05/23/20 05/23/20 10:12 13:31 WBC RBC Hgb Hct MCV MCH MCHC RDW Plt Count MPV Absolute Neuts (auto) Neutrophils % Lymphocytes % Monocytes % Eosinophils % Basophils % Nucleated RBC % Sodium 134 L Potassium 2.7 L* Chloride 98 Carbon Dioxide 21 Anion Gap 15 BUN 3.2 L Creatinine 0.3 L Est GFR (CKD-EPI)AfAm 179.33 Est GFR (CKD-EPI)NonAf 154.73 POC Glucometer 144 Random Glucose 122 H Hemoglobin A1c % Calcium 7.9 L Phosphorus 2.2 L Magnesium 1.5 L Total Bilirubin 1.4 H AST 65 H ALT 106 H Alkaline Phosphatase 86 Total Protein 5.0 L Albumin 2.0 L TSH 1.12 Free T4 1.57 H Opiates Screen Methadone Screen Barbiturate Screen Phencyclidine Screen Ur Amphetamines Screen MDMA (Ecstasy) Screen Benzodiazepines Screen Cocaine Screen U Marijuana (THC) Screen Active Medications Generic Name Dose Route Start Last Admin Trade Name Freq PRN Reason Stop Dose Admin Calcium Carbonate 650 mg 05/23/20 03:44 05/23/20 05:21 Calcium Carbonate - PO 650 mg ONCE PRN Administration DYSPEPSIA Diphenhydramine HCl 25 mg 05/23/20 12:58 05/23/20 13:19 Benadryl Injection - IVPUSH 25 mg Q4H CHUY Administration Magnesium Sulfate/Dextrose 1 gm in 100 mls @ 100 mls/hr 05/23/20 13:45 Magnesium 1gm/D5w - IVPB 05/23/20 14:44 Q1H CHUY Potassium Chloride 40 meq/ 1,020 mls @ 125 mls/hr 05/23/20 13:45 Sodium Chloride IVPB Q8H CHUY Famotidine/Sodium Chloride 20 mg in 50 mls @ 100 mls/hr 05/23/20 22:00 Pepcid 20 Mg Premixed Ivpb - IVPB BID CHUY Insulin Aspart 1 vial 05/23/20 16:30 Novolog Vial Sliding Scale - SQ ACHS CHUY Protocol Pyridoxine HCl 100 mg 05/22/20 22:54 05/23/20 09:44 Vitamin B6 Injection - IM 100 mg DAILY CHUY Administration ASSESSMENT/PLAN: ATTENDING PHYSICIAN STATEMENT I saw and evaluated the patient. I reviewed the resident's note and discussed the case with the resident. I agree with the resident's findings and plan as documented. SUBJECTIVE: OBJECTIVE: ASSESSMENT AND PLAN:
--- NOTE | 2020-05-23 14:44 | CONSULT ---
Consultation: REQUESTING PROVIDER: CONSULT REQUEST: We have been asked to medically evaluate this patient for hypokalemia, hypomagnesemia, Type 1 Diabetes Mellitus. HISTORY OF PRESENT ILLNESS: 29 year old female patient with past medical history that includes IDDM, 19 weeks , and marijuana use, who was transferred here from [facility] due to nausea and nonbloody vomiting for 2 weeks. Patient endorses vomiting greenish-yellowish fluid over 10 times per day, with no abdominal pain. She was given Zofran in [facility], without resolution of the patient's symptoms. She reported being upset that a Google search by her found that Zofran may be associated with an increased risk for defects. The patient smokes marijuana daily and reports that it gives her relief from her nausea for a few hours, but then the nausea comes back. Her last use of marijuana was 5 days ago. Today, the patient reports continued nausea with an episode of vomiting this AM. REVIEW OF SYSTEMS: CONSTITUTIONAL: chills, loss of appetite, feels dehydrated Absent: no fever HEENT: Absent: no loss of smell CARDIOVASCULAR: palpitations Absent: no chest pain RESPIRATORY: Absent: no shortness of breath GASTROINTESTINAL: heart burn, nausea, vomiting greenish-yellowish fluid x10+ episodes per day; endorses vomiting once time this AM, abdominal tenderness Absent: no abdominal pain, no diarrhea Absent: chest pain PHYSICAL EXAMINATION Vital Signs - 24 hr 05/22/20 05/22/20 05/22/20 15:50 15:58 17:24 Temperature 98.8 F Pulse Rate 106 H Pulse Rate [ 96 H 89 Radial] Respiratory 16 18 16 Rate Blood Pressure 147/87 Blood Pressure 136/79 136/76 [Left Arm] O2 Sat by Pulse 100 100 Oximetry (%) 05/22/20 05/23/20 05/23/20 21:52 01:41 05:19 Temperature 98.4 F 98.2 F 98.4 F Pulse Rate 100 H 84 90 Pulse Rate [ Radial] Respiratory 20 20 20 Rate Blood Pressure 143/87 141/75 154/88 Blood Pressure [Left Arm] O2 Sat by Pulse Oximetry (%) 05/23/20 09:00 Temperature 98 F Pulse Rate 90 Pulse Rate [ Radial] Respiratory 22 H Rate Blood Pressure 136/80 Blood Pressure [Left Arm] O2 Sat by Pulse 98 Oximetry (%) GENERAL: [id number]: NCAT, PERRLA, EOMI, sclera anicteric, conjunctiva clear NECK: Normal ROM, supple, no lymphadenopathy, JVD, or masses LUNGS: CTABL no wheezes/ rhonchi/ rales. No distress, speaks in full sentences. No increased work of breathing. HEART: RRR, normal S1 S2, no M/R/G, peripheral pulses 2+ and equal b/l ABDOMEN: Soft, tenderness upon palpation in ULQ, + BS. No guarding or rebound. No hepatomegaly or splenomegaly. MSK: ROM WNL EXTREMITIES: Normal inspection. No peripheral edema. No clubbing or cyanosis. NEUROLOGICAL: CN II-XII intact. Normal speech SKIN: no rashes or lesions noted Laboratory Results - last 24 hr 05/22/20 05/22/20 05/22/20 17:16 19:50 21:47 WBC RBC Hgb Hct MCV MCH MCHC RDW Plt Count MPV Absolute Neuts (auto) Neutrophils % Lymphocytes % Monocytes % Eosinophils % Basophils % Nucleated RBC % Sodium 137 Potassium 2.7 L* Chloride 100 Carbon Dioxide 21 Anion Gap 16 BUN 6.1 L Creatinine 0.5 L Est GFR (CKD-EPI)AfAm 151.59 Est GFR (CKD-EPI)NonAf 130.79 POC Glucometer 133 195 Random Glucose 161 H Hemoglobin A1c % Calcium 7.3 L Phosphorus 1.4 L Magnesium 1.5 L Total Bilirubin 1.4 H AST 79 H ALT 116 H Alkaline Phosphatase 89 Total Protein 5.2 L Albumin 2.0 L TSH Free T4 Opiates Screen Methadone Screen Barbiturate Screen Phencyclidine Screen Ur Amphetamines Screen MDMA (Ecstasy) Screen Benzodiazepines Screen Cocaine Screen U Marijuana (THC) Screen 05/23/20 05/23/20 05/23/20 00:00 01:28 05:24 WBC RBC Hgb Hct MCV MCH MCHC RDW Plt Count MPV Absolute Neuts (auto) Neutrophils % Lymphocytes % Monocytes % Eosinophils % Basophils % Nucleated RBC % Sodium Potassium Chloride Carbon Dioxide Anion Gap BUN Creatinine Est GFR (CKD-EPI)AfAm Est GFR (CKD-EPI)NonAf POC Glucometer 162 122 Random Glucose Hemoglobin A1c % Calcium Phosphorus Magnesium Total Bilirubin AST ALT Alkaline Phosphatase Total Protein Albumin TSH Free T4 Opiates Screen Negative Methadone Screen Negative Barbiturate Screen Negative Phencyclidine Screen Negative Ur Amphetamines Screen Negative MDMA (Ecstasy) Screen Negative Benzodiazepines Screen Negative Cocaine Screen Negative U Marijuana (THC) Screen Positive A* 05/23/20 05/23/20 05/23/20 09:12 10:12 10:12 WBC 10.3 H RBC 3.60 Hgb 10.3 L Hct 29.4 L MCV 81.8 MCH 28.7 MCHC 35.1 RDW 13.8 Plt Count 283 MPV 8.0 Absolute Neuts (auto) 6.9 Neutrophils % 67.3 Lymphocytes % 25.0 D Monocytes % 5.8 Eosinophils % 1.4 Basophils % 0.5 Nucleated RBC % 0 Sodium Potassium Chloride Carbon Dioxide Anion Gap BUN Creatinine Est GFR (CKD-EPI)AfAm Est GFR (CKD-EPI)NonAf POC Glucometer 112 Random Glucose Hemoglobin A1c % 7.5 H Calcium Phosphorus Magnesium Total Bilirubin AST ALT Alkaline Phosphatase Total Protein Albumin TSH Free T4 Opiates Screen Methadone Screen Barbiturate Screen Phencyclidine Screen Ur Amphetamines Screen MDMA (Ecstasy) Screen Benzodiazepines Screen Cocaine Screen U Marijuana (THC) Screen 05/23/20 05/23/20 10:12 13:31 WBC RBC Hgb Hct MCV MCH MCHC RDW Plt Count MPV Absolute Neuts (auto) Neutrophils % Lymphocytes % Monocytes % Eosinophils % Basophils % Nucleated RBC % Sodium 134 L Potassium 2.7 L* Chloride 98 Carbon Dioxide 21 Anion Gap 15 BUN 3.2 L Creatinine 0.3 L Est GFR (CKD-EPI)AfAm 179.33 Est GFR (CKD-EPI)NonAf 154.73 POC Glucometer 144 Random Glucose 122 H Hemoglobin A1c % Calcium 7.9 L Phosphorus 2.2 L Magnesium 1.5 L Total Bilirubin 1.4 H AST 65 H ALT 106 H Alkaline Phosphatase 86 Total Protein 5.0 L Albumin 2.0 L TSH 1.12 Free T4 1.57 H Opiates Screen Methadone Screen Barbiturate Screen Phencyclidine Screen Ur Amphetamines Screen MDMA (Ecstasy) Screen Benzodiazepines Screen Cocaine Screen U Marijuana (THC) Screen Active Medications Generic Name Dose Route Start Last Admin Trade Name Freq PRN Reason Stop Dose Admin Calcium Carbonate 650 mg 05/23/20 03:44 05/23/20 05:21 Calcium Carbonate - PO 650 mg ONCE PRN Administration DYSPEPSIA Diphenhydramine HCl 25 mg 05/23/20 12:58 05/23/20 13:19 Benadryl Injection - IVPUSH 25 mg Q4H CHUY Administration Magnesium Sulfate/Dextrose 1 gm in 100 mls @ 100 mls/hr 05/23/20 13:45 Magnesium 1gm/D5w - IVPB 05/23/20 14:44 Q1H CHUY Potassium Chloride 40 meq/ 1,020 mls @ 125 mls/hr 05/23/20 13:45 Sodium Chloride IVPB Q8H CHUY Famotidine/Sodium Chloride 20 mg in 50 mls @ 100 mls/hr 05/23/20 22:00 Pepcid 20 Mg Premixed Ivpb - IVPB BID CHUY Insulin Aspart 1 vial 05/23/20 16:30 Novolog Vial Sliding Scale - SQ ACHS PENDING SALE TO [facility] Protocol Pyridoxine HCl 100 mg 05/22/20 22:54 05/23/20 09:44 Vitamin B6 Injection - IM 100 mg DAILY CHUY Administration ASSESSMENT/PLAN: 29 year old female patient with past medical history that includes IDDM, 19 weeks , and marijuana use with last use 5 days ago per patient, who was transferred here from [facility] due to nausea and nonbloody vomiting for 2 weeks. #Hyperemesis Gravidum - Benadryl and Vitamin B6 - continue IV Hydration - Repeat ECG QTc was 450; down from initial EKG upon admission -avoid QTC prolonging treatments # Hypokalemia - Repleted with KCl - Monitor Electrolytes -repeat BMP ordered for 10 PM tonight #Hypomagnesemia -repleted Magnesium -monitor electrolytes -repeat Magnesium ordered for 10 PM tonight #Diabetes Mellitus- Type 1 -insulin sliding scale ordered -BGM ACHS #FEN -1/2 NS - Monitor Electrolytes. -Full Liquid Diabetic Diet Dispo: We will continue to follow the patient. Thank you for this consultative opportunity. <Bala White - Last Filed: 05/23/20 15:37> Consultation: 05/22/20 05/22/20 05/23/20 17:24 21:52 01:41 Temperature 98.4 F 98.2 F Pulse Rate 106 H 100 H 84 Respiratory 16 20 20 Rate Blood Pressure 147/87 143/87 141/75 O2 Sat by Pulse Oximetry (%) 05/23/20 05/23/20 05/23/20 05:19 09:00 13:00 Temperature 98.4 F 98 F 97.9 F Pulse Rate 90 90 86 Respiratory 20 22 H 20 Rate Blood Pressure 154/88 136/80 134/73 O2 Sat by Pulse 98 Oximetry (%) Laboratory Results - last 24 hr 05/22/20 05/22/20 05/22/20 17:16 19:50 21:47 WBC RBC Hgb Hct MCV MCH MCHC RDW Plt Count MPV Absolute Neuts (auto) Neutrophils % Lymphocytes % Monocytes % Eosinophils % Basophils % Nucleated RBC % Sodium 137 Potassium 2.7 L* Chloride 100 Carbon Dioxide 21 Anion Gap 16 BUN 6.1 L Creatinine 0.5 L Est GFR (CKD-EPI)AfAm 151.59 Est GFR (CKD-EPI)NonAf 130.79 POC Glucometer 133 195 Random Glucose 161 H Hemoglobin A1c % Calcium 7.3 L Phosphorus 1.4 L Magnesium 1.5 L Total Bilirubin 1.4 H AST 79 H ALT 116 H Alkaline Phosphatase 89 Total Protein 5.2 L Albumin 2.0 L TSH Free T4 Opiates Screen Methadone Screen Barbiturate Screen Phencyclidine Screen Ur Amphetamines Screen MDMA (Ecstasy) Screen Benzodiazepines Screen Cocaine Screen U Marijuana (THC) Screen 05/23/20 05/23/20 05/23/20 00:00 01:28 05:24 WBC RBC Hgb Hct MCV MCH MCHC RDW Plt Count MPV Absolute Neuts (auto) Neutrophils % Lymphocytes % Monocytes % Eosinophils % Basophils % Nucleated RBC % Sodium Potassium Chloride Carbon Dioxide Anion Gap BUN Creatinine Est GFR (CKD-EPI)AfAm Est GFR (CKD-EPI)NonAf POC Glucometer 162 122 Random Glucose Hemoglobin A1c % Calcium Phosphorus Magnesium Total Bilirubin AST ALT Alkaline Phosphatase Total Protein Albumin TSH Free T4 Opiates Screen Negative Methadone Screen Negative Barbiturate Screen Negative Phencyclidine Screen Negative Ur Amphetamines Screen Negative MDMA (Ecstasy) Screen Negative Benzodiazepines Screen Negative Cocaine Screen Negative U Marijuana (THC) Screen Positive A* 05/23/20 05/23/20 05/23/20 09:12 10:12 10:12 WBC 10.3 H RBC 3.60 Hgb 10.3 L Hct 29.4 L MCV 81.8 MCH 28.7 MCHC 35.1 RDW 13.8 Plt Count 283 MPV 8.0 Absolute Neuts (auto) 6.9 Neutrophils % 67.3 Lymphocytes % 25.0 D Monocytes % 5.8 Eosinophils % 1.4 Basophils % 0.5 Nucleated RBC % 0 Sodium Potassium Chloride Carbon Dioxide Anion Gap BUN Creatinine Est GFR (CKD-EPI)AfAm Est GFR (CKD-EPI)NonAf POC Glucometer 112 Random Glucose Hemoglobin A1c % 7.5 H Calcium Phosphorus Magnesium Total Bilirubin AST ALT Alkaline Phosphatase Total Protein Albumin TSH Free T4 Opiates Screen Methadone Screen Barbiturate Screen Phencyclidine Screen Ur Amphetamines Screen MDMA (Ecstasy) Screen Benzodiazepines Screen Cocaine Screen U Marijuana (THC) Screen 05/23/20 05/23/20 05/23/20 10:12 13:31 16:41 WBC RBC Hgb Hct MCV MCH MCHC RDW Plt Count MPV Absolute Neuts (auto) Neutrophils % Lymphocytes % Monocytes % Eosinophils % Basophils % Nucleated RBC % Sodium 134 L Potassium 2.7 L* Chloride 98 Carbon Dioxide 21 Anion Gap 15 BUN 3.2 L Creatinine 0.3 L Est GFR (CKD-EPI)AfAm 179.33 Est GFR (CKD-EPI)NonAf 154.73 POC Glucometer 144 161 Random Glucose 122 H Hemoglobin A1c % Calcium 7.9 L Phosphorus 2.2 L Magnesium 1.5 L Total Bilirubin 1.4 H AST 65 H ALT 106 H Alkaline Phosphatase 86 Total Protein 5.0 L Albumin 2.0 L TSH 1.12 Free T4 1.57 H Opiates Screen Methadone Screen Barbiturate Screen Phencyclidine Screen Ur Amphetamines Screen MDMA (Ecstasy) Screen Benzodiazepines Screen Cocaine Screen U Marijuana (THC) Screen Active Medications Generic Name Dose Route Start Last Admin Trade Name Freq PRN Reason Stop Dose Admin Calcium Carbonate 650 mg 05/23/20 03:44 05/23/20 05:21 Calcium Carbonate - PO 650 mg ONCE PRN Administration DYSPEPSIA Diphenhydramine HCl 25 mg 05/23/20 12:58 05/23/20 17:00 Benadryl Injection - IVPUSH 25 mg Q4H CHUY Administration Potassium Chloride 40 meq/ 1,020 mls @ 125 mls/hr 05/23/20 13:45 05/23/20 15:33 Sodium Chloride IVPB 125 mls/hr Q8H CHUY Administration Famotidine/Sodium Chloride 20 mg in 50 mls @ 100 mls/hr 05/23/20 22:00 Pepcid 20 Mg Premixed Ivpb - IVPB BID CHUY Insulin Aspart 1 vial 05/23/20 16:30 05/23/20 17:01 Novolog Vial Sliding Scale - SQ 2 units ACHS CHUY Administration Protocol Pyridoxine HCl 100 mg 05/22/20 22:54 05/23/20 09:44 Vitamin B6 Injection - IM 100 mg DAILY CHUY Administration ASSESSMENT/PLAN: This patient is a 29yof ,19week , admitted for having gravidurum hyperemesis. #Graviduram hyperemesis: most likely due to /marijuana. supportive care continue' #Severe electrolyte abnormality with Potassium of 2.7 and mag of 1.5,will replet mag and K , IVF 1/2 NS with 40meq potassium continue, will repeat the level. continue current care #[place] abstinece recommended. #T1DM continue with SS with coverage We will continue to follow the patient. <Darlene Jordan - Last Filed: 05/23/20 17:19> Visit type - Emergency Visit Emergency Visit: No - New Patient This patient is new to me today: Yes Date on this admission: 05/23/20 - Critical Care Critical Care patient: No <Bala White - Last Filed: 05/23/20 15:37> ATTENDING PHYSICIAN STATEMENT I saw and evaluated the patient. I reviewed the resident's note and discussed the case with the resident. I agree with the resident's findings and plan as documented. SUBJECTIVE: OBJECTIVE: ASSESSMENT AND PLAN: <Bala White - Last Filed: 05/23/20 15:37> ATTENDING PHYSICIAN STATEMENT I saw and evaluated the patient. I reviewed the resident's note and discussed the case with the resident. I agree with the resident's findings and plan as documented. SUBJECTIVE: OBJECTIVE: ASSESSMENT AND PLAN: <Darlene Jordan - Last Filed: 05/23/20 17:19>
[2020-05-23] MEDS: POTASSIUM CHLORIDE 40 MEQ in SODIUM CHLORIDE 0.45% 1,000 ML IVPB SCH ×2 (15:33→23:57)
[2020-05-23] MEDS ORDERED: INSULIN SLIDING SCALE (NOVOLOG) 1 VIAL SQ SCH (16:30)
[2020-05-23] MEDS: INSULIN SLIDING SCALE (NOVOLOG) 1 VIAL SQ SCH ×2 (17:01→22:05)
--- NOTE | 2020-05-23 17:49 | PN ---
Progress Note (short form) - Note Progress Note: 19w with hyperemesis electrolyte imbalance Type 1 DM Currently on Benadryl, Pepcid Replacing K and Mg by medicine team Insulin sliding scale, FS q 4 hours Tolarating some fluids today Lungs non labored Abd soft, non tender Imp: Hyperemesis gravidarum Plan: Continue with Benadryl and Pepcid today Consider changing to Reglan tomorrow Diet as tolerated Electrolyte replacement as per medicine Repeat labs tonight FHR by nursing q shift
[2020-05-23] MEDS: FAMOTIDINE 20 MG/50 ML IVPB 20 MG/50 ML MG IVPB SCH (21:05)
[2020-05-23 22:17] LABS: MAGNESIUM 1.8 mg/dL (1.8-2.4)
[2020-05-23] MEDS: METOCLOPRAMIDE HCL INJECTION 10 MG/2 ML VIAL IVPUSH SCH (22:26)
[2020-05-24] MEDS ORDERED: POTASSIUM PHOSPHATE 20 MM in SODIUM CHLORIDE 250 ML IVPB ONE (00:31)
[2020-05-24] MEDS ORDERED: POTASSIUM PHOSPHATE 10 MM in SODIUM CHLORIDE 250 ML IVPB ONE (01:00)
[2020-05-24] MEDS: KCL 10 MEQ IVPB 10 MEQ/100 ML INFUS.BAG IVPB SCH ×3 (01:07→03:26)
[2020-05-24] MEDS: METOCLOPRAMIDE HCL INJECTION 10 MG/2 ML VIAL IVPUSH SCH ×3 (05:20→22:10)
[2020-05-24] MEDS: INSULIN SLIDING SCALE (NOVOLOG) 1 VIAL SQ SCH ×4 (06:39→22:51)
[2020-05-24] MEDS: POTASSIUM CHLORIDE 40 MEQ in SODIUM CHLORIDE 0.45% 1,000 ML IVPB SCH (06:59)
[2020-05-24 08:18] LABS: BASO % 0.7 % (0-2.0); EOS % 1.6 % (0-4.5); HEMATOCRIT 29.8 % (32.4-45.2); HEMOGLOBIN 10.4 GM/dL (10.7-15.3); LYMPH % 34.1 % (8-40); MCH 28.7 pg (25.7-33.7); MEAN CELL VOLUME 81.9 fl (80-96); MEAN PLT VOLUME 8.1 fl (7.5-11.1); MONO % 5.7 % (3.8-10.2); NEUT % 57.9 % (42.8-82.8); PLATELET COUNT 268 K/MM3 (134-434); RBC 3.64 M/mm3 (3.60-5.2); RDW 13.9 % (11.6-15.6); WHITE BLOOD COUNT 9.2 K/mm3 (4.0-10.0)
[2020-05-24 08:45] LABS: CALCIUM 7.3 mg/dL (8.5-10.1); CREATININE 0.4 mg/dL (0.55-1.3); MAGNESIUM 1.4 mg/dL (1.8-2.4); POTASSIUM 4.5 mmol/L (3.5-5.1)
[2020-05-24 08:49] LABS: BLOOD UREA NITROGEN 2.7 mg/dL (7-18)
[2020-05-24] MEDS ORDERED: SODIUM CHLORIDE 0.45% IVPB SCH (09:00)
[2020-05-24] MEDS ORDERED: MAGNESIUM SULFATE IVPB SCH (09:00)
[2020-05-24 09:15] LABS: CALCIUM 7.9 mg/dL (8.5-10.1); CREATININE 0.4 mg/dL (0.55-1.3); POTASSIUM 3.1 mmol/L (3.5-5.1)
[2020-05-24 09:32] LABS: BLOOD UREA NITROGEN 2.4 mg/dL (7-18)
[2020-05-24] MEDS: PYRIDOXINE HCL 100 MG/1 ML VIAL IM SCH (10:08)
[2020-05-24] MEDS: FAMOTIDINE 20 MG/50 ML IVPB 20 MG/50 ML MG IVPB SCH ×2 (10:09→22:49)
[2020-05-24] MEDS: MAGNESIUM SO4 IVPB SCH ×2 (10:52→19:08)
[2020-05-24] MEDS: SODIUM CHLORIDE 0.45% IVPB SCH ×2 (10:52→19:08)
[2020-05-24] MEDS: POTASSIUM CHLORIDE IVPB SCH ×2 (10:52→19:08)
--- NOTE | 2020-05-24 10:56 | PN ---
Progress Note (short form) - Note Progress Note: 29 yo admitted with hyperemesis diabetes electrolyte imbalance pt does not feel weel appears weak tolerating some liquids and some soft food. weak to ambulate. plan pt being followed by medicine continue observation.
--- NOTE | 2020-05-24 12:04 | CONSULT ---
Consultation: REQUESTING PROVIDER: CONSULT REQUEST: We have been asked to medically evaluate this patient for gravidurum hyperemesis and Type 1 Diabetes Mellitus. HISTORY OF PRESENT ILLNESS: 29 year old female patient with past medical history that includes IDDM, 19 weeks , and marijuana use, who was transferred here from [facility] due to nausea and nonbloody vomiting for 2 weeks. Patient endorses vomiting greenish-yellowish fluid over 10 times per day, with no abdominal pain. She was given Zofran in [facility], without resolution of the patient's symptoms. She reported being upset that a Google search by her found that Zofran may be associated with an increased risk for defects. The patient smokes marijuana daily and reports that it gives her relief from her nausea for a few hours, but then the nausea comes back. Her last use of marijuana was 6 days ago. Overnight, patient reports no episode of vomiting. No acute events reported overnight by the nurse. Today, the patient reports continued nausea with an episode of vomiting this AM. REVIEW OF SYSTEMS: CONSTITUTIONAL: chills, loss of appetite, feels dehydrated Absent: no fever HEENT: Absent: no loss of smell CARDIOVASCULAR: palpitations Absent: no chest pain RESPIRATORY: Absent: no shortness of breath GASTROINTESTINAL: heart burn, nausea, vomiting greenish-yellowish fluid x10+ episodes per day; endorses vomiting once time this AM, abdominal tenderness Absent: no abdominal pain, no diarrhea Absent: chest pain PHYSICAL EXAMINATION Vital Signs - 24 hr 05/23/20 05/23/20 05/23/20 13:00 17:00 21:00 Temperature 97.9 F 98.4 F 98.8 F Pulse Rate 86 96 H 88 Respiratory 20 20 18 Rate Blood Pressure 134/73 121/73 137/91 05/24/20 05/24/20 01:00 05:00 Temperature 98.1 F 98.2 F Pulse Rate 98 H 93 H Respiratory 18 18 Rate Blood Pressure 128/84 127/88 GENERAL: [id number]: NCAT, PERRLA, EOMI, sclera anicteric, conjunctiva clear NECK: Normal ROM, supple, no lymphadenopathy, JVD, or masses LUNGS: CTABL no wheezes/ rhonchi/ rales. No distress, speaks in full sentences. No increased work of breathing. HEART: RRR, normal S1 S2, no M/R/G, peripheral pulses 2+ and equal b/l ABDOMEN: Soft, tenderness upon palpation in ULQ, + BS. No guarding or rebound. No hepatomegaly or splenomegaly. MSK: ROM WNL EXTREMITIES: Normal inspection. No peripheral edema. No clubbing or cyanosis. NEUROLOGICAL: CN II-XII intact. Normal speech SKIN: no rashes or lesions noted Laboratory Results - last 24 hr CBC, BMP 05/24/20 07:11 05/24/20 07:11 05/23/20 05/23/20 05/23/20 13:31 16:41 21:30 WBC RBC Hgb Hct MCV MCH MCHC RDW Plt Count MPV Absolute Neuts (auto) Neutrophils % Lymphocytes % Monocytes % Eosinophils % Basophils % Nucleated RBC % Sodium 135 L Potassium 3.1 L Chloride 100 Carbon Dioxide 22 Anion Gap 12 BUN 2.4 L* Creatinine 0.4 L Est GFR (CKD-EPI)AfAm 163.13 Est GFR (CKD-EPI)NonAf 140.75 POC Glucometer 144 161 Random Glucose 107 H Calcium 7.9 L Magnesium 1.8 05/23/20 05/24/20 05/24/20 21:59 05:26 06:35 WBC RBC Hgb Hct MCV MCH MCHC RDW Plt Count MPV Absolute Neuts (auto) Neutrophils % Lymphocytes % Monocytes % Eosinophils % Basophils % Nucleated RBC % Sodium Potassium Chloride Carbon Dioxide Anion Gap BUN Creatinine Est GFR (CKD-EPI)AfAm Est GFR (CKD-EPI)NonAf POC Glucometer 101 91 116 Random Glucose Calcium Magnesium 05/24/20 05/24/20 05/24/20 07:11 07:11 09:38 WBC 9.2 RBC 3.64 Hgb 10.4 L Hct 29.8 L MCV 81.9 MCH 28.7 MCHC 35.0 RDW 13.9 Plt Count 268 MPV 8.1 Absolute Neuts (auto) 5.3 Neutrophils % 57.9 Lymphocytes % 34.1 D Monocytes % 5.7 Eosinophils % 1.6 Basophils % 0.7 Nucleated RBC % 0 Sodium 135 L Potassium 4.5 Chloride 105 Carbon Dioxide 21 Anion Gap 9 BUN 2.7 L* Creatinine 0.4 L Est GFR (CKD-EPI)AfAm 163.13 Est GFR (CKD-EPI)NonAf 140.75 POC Glucometer 82 Random Glucose 92 Calcium 7.3 L Magnesium 1.4 L Active Medications Generic Name Dose Route Start Last Admin Trade Name Freq PRN Reason Stop Dose Admin Diphenhydramine HCl 25 mg 05/23/20 22:17 05/24/20 08:48 Benadryl Injection - IVPUSH 25 mg Q4H PRN Administration NAUSEA AND/OR VOMITING Famotidine/Sodium Chloride 20 mg in 50 mls @ 100 mls/hr 05/23/20 22:00 05/24/20 10:09 Pepcid 20 Mg Premixed Ivpb - IVPB 100 mls/hr BID CHUY Administration Potassium Chloride 40 meq/ 1,020 mls @ 125 mls/hr 05/24/20 09:00 05/24/20 10:52 Magnesium Sulfate 2 gm/ Sodium IVPB 125 mls/hr Chloride Q8H CHUY Administration Insulin Aspart 1 vial 05/23/20 16:30 05/24/20 10:07 Novolog Vial Sliding Scale - SQ Not Given ACHS CHUY Protocol Metoclopramide HCl 10 mg 05/23/20 22:15 05/24/20 05:20 Reglan Injection - IVPUSH 10 mg Q8H CHUY Administration Pyridoxine HCl 100 mg 05/22/20 22:54 05/24/20 10:08 Vitamin B6 Injection - IM 100 mg DAILY CHUY Administration ASSESSMENT/PLAN: 29 year old female patient with past medical history that includes IDDM, 19 weeks , and marijuana use with last use 6 days ago per patient, who was transferred here from [facility] due to nausea and nonbloody vomiting for 2 weeks. #Hyperemesis Gravidum - Benadryl and Vitamin B6 - continue IV Hydration - Repeat ECG QTc was 450; down from initial EKG upon admission -avoid QTC prolonging treatments # Hypokalemia - K Repleted --> today's K was 4.5 - Monitor Electrolytes -BMP ordered for tomorrow AM #Hypomagnesemia -repleted Magnesium -monitor electrolytes -Mg level ordered for tomorrow AM #Diabetes Mellitus- Type 1 -insulin sliding scale ordered -BGM [facility] #FEN -1/2 NS - Monitor Electrolytes. -Full Liquid Diabetic Diet Dispo: We will continue to follow the patient. Thank you for this consultative opportunity. Visit type - Emergency Visit Emergency Visit: No - New Patient This patient is new to me today: No - Critical Care Critical Care patient: No ATTENDING PHYSICIAN STATEMENT I saw and evaluated the patient. I reviewed the resident's note and discussed the case with the resident. I agree with the resident's findings and plan as documented. SUBJECTIVE: OBJECTIVE: ASSESSMENT AND PLAN:
[2020-05-24 12:19] LABS: PHOSPHOROUS 1.6 mg/dL (2.5-4.9)
--- NOTE | 2020-05-24 12:36 | EKG ---
Test Reason : Blood Pressure : / mmHG Vent. Rate : 087 BPM Atrial Rate : 087 BPM P-R Int : 120 ms QRS Dur : 092 ms QT Int : 374 ms P-R-T Axes : 052 062 051 degrees QTc Int : 450 ms NORMAL SINUS RHYTHM T WAVE ABNORMALITY, CONSIDER ANTERIOR ISCHEMIA ABNORMAL ECG WHEN COMPARED WITH ECG OF 22-MAY-2020 09:52, SINUS RHYTHM HAS REPLACED ATRIAL FLUTTER CRITERIA FOR INFERIOR INFARCT ARE NO LONGER PRESENT NON-SPECIFIC CHANGE IN ST SEGMENT IN LATERAL LEADS NONSPECIFIC T WAVE ABNORMALITY, IMPROVED IN INFERIOR LEADS T WAVE INVERSION NO LONGER EVIDENT IN LATERAL LEADS QT HAS SHORTENED Confirmed by SHANE ZAVALETA MD ([id number]) on 05/24/2020 12:36:46 PM Referred By: Confirmed By:SHANE ZAVALETA MD
--- NOTE | 2020-05-24 15:09 | PN ---
Teaching Attending Note Name of Resident: Bala White ATTENDING PHYSICIAN STATEMENT I saw and evaluated the patient. I reviewed the resident's note and discussed the case with the resident. I agree with the resident's findings and plan as documented. SUBJECTIVE: Patient is feeling better, feels nausea on and off, tolerating diet on and off OBJECTIVE: Vital Signs Temperature 98.9 F 05/24/20 13:00 Pulse Rate 94 H 05/24/20 13:00 Respiratory Rate 20 05/24/20 13:00 Blood Pressure 144/87 05/24/20 13:00 O2 Sat by Pulse Oximetry (%) 100 05/24/20 09:00 PE: NAD, comfortable rest of PE per resident's note CBCD WBC 9.2 K/mm3 (4.0-10.0) 05/24/20 07:11 RBC 3.64 M/mm3 (3.60-5.2) 05/24/20 07:11 Hgb 10.4 GM/dL (10.7-15.3) L 05/24/20 07:11 Hct 29.8 % (32.4-45.2) L 05/24/20 07:11 MCV 81.9 fl (80-96) 05/24/20 07:11 MCHC 35.0 g/dl (32.0-36.0) 05/24/20 07:11 RDW 13.9 % (11.6-15.6) 05/24/20 07:11 Plt Count 268 K/MM3 (134-434) 05/24/20 07:11 MPV 8.1 fl (7.5-11.1) 05/24/20 07:11 CMP Sodium 135 mmol/L (136-145) L 05/24/20 07:11 Potassium 4.5 mmol/L (3.5-5.1) 05/24/20 07:11 Chloride 105 mmol/L (98-107) 05/24/20 07:11 Carbon Dioxide 21 mmol/L (21-32) 05/24/20 07:11 Anion Gap 9 MMOL/L (8-16) 05/24/20 07:11 BUN 2.7 mg/dL (7-18) L* 05/24/20 07:11 Creatinine 0.4 mg/dL (0.55-1.3) L 05/24/20 07:11 Random Glucose 92 mg/dL (74-106) 05/24/20 07:11 Calcium 7.3 mg/dL (8.5-10.1) L 05/24/20 07:11 Total Bilirubin 1.4 mg/dL (0.2-1) H 05/23/20 10:12 AST 65 U/L (15-37) H 05/23/20 10:12 ALT 106 U/L (13-61) H 05/23/20 10:12 Alkaline Phosphatase 86 U/L (45-117) 05/23/20 10:12 Total Protein 5.0 g/dl (6.4-8.2) L 05/23/20 10:12 Albumin 2.0 g/dl (3.4-5.0) L 05/23/20 10:12 Current Medications Generic Name Dose Route Start Last Admin Trade Name Freq PRN Reason Stop Dose Admin Diphenhydramine HCl 25 mg 05/23/20 22:17 05/24/20 08:48 Benadryl Injection - IVPUSH 25 mg Q4H PRN Administration NAUSEA AND/OR VOMITING Famotidine/Sodium Chloride 20 mg in 50 mls @ 100 mls/hr 05/23/20 22:00 05/24/20 10:09 Pepcid 20 Mg Premixed Ivpb - IVPB 100 mls/hr BID CHUY Administration Potassium Chloride 40 meq/ 1,020 mls @ 125 mls/hr 05/24/20 09:00 05/24/20 10:52 Magnesium Sulfate 2 gm/ Sodium IVPB 125 mls/hr Chloride Q8H CHUY Administration Insulin Aspart 1 vial 05/23/20 16:30 05/24/20 10:07 Novolog Vial Sliding Scale - SQ Not Given ACHS CHUY Protocol Metoclopramide HCl 10 mg 05/23/20 22:15 05/24/20 14:45 Reglan Injection - IVPUSH 10 mg Q8H CHUY Administration Pyridoxine HCl 100 mg 05/22/20 22:54 05/24/20 10:08 Vitamin B6 Injection - IM 100 mg DAILY CHUY Administration Microbiology 05/22/20 10:15 Urine - Urine Clean Catch Urine Culture - Final Normal Urogenital Luisana ASSESSMENT AND PLAN: This patient is a 29yof ,19week , admitted for having gravidurum hyperemesis. #Graviduram hyperemesis: most likely due to /marijuana. supportive care continue, continue IVF, diet as tolerated #Severe electrolyte abnormality with Potassium of 2.7 normal now, and mag of 1.5--> 1.4 ,will continue to replet mag and K , replete and continue to monitor the levels #[place] abstinence recommended. #T1DM continue with SS with coverage # week 19, Hr is being monitored by the OB nurse and AUTO ADJUDICATION SPECIALIST We will continue to follow the patient. check K and Mag for am
[2020-05-25] MEDS: POTASSIUM CHLORIDE IVPB SCH ×2 (04:53→12:01)
[2020-05-25] MEDS: MAGNESIUM SO4 IVPB SCH ×2 (04:53→12:01)
[2020-05-25] MEDS: SODIUM CHLORIDE 0.45% IVPB SCH ×2 (04:53→12:01)
[2020-05-25] MEDS: METOCLOPRAMIDE HCL INJECTION 10 MG/2 ML VIAL IVPUSH SCH ×3 (06:44→21:41)
[2020-05-25] MEDS: INSULIN SLIDING SCALE (NOVOLOG) 1 VIAL SQ SCH ×4 (06:51→21:41)
[2020-05-25 08:50] LABS: BASO % 0.8 % (0-2.0); EOS % 1.3 % (0-4.5); HEMATOCRIT 30.4 % (32.4-45.2); HEMOGLOBIN 10.5 GM/dL (10.7-15.3); LYMPH % 31.6 % (8-40); MCH 28.4 pg (25.7-33.7); MCHC 34.5 g/dl (32.0-36.0); MEAN CELL VOLUME 82.4 fl (80-96); MEAN PLT VOLUME 8.2 fl (7.5-11.1); MONO % 6.2 % (3.8-10.2); NEUT % 60.1 % (42.8-82.8); PLATELET COUNT 292 K/MM3 (134-434); RBC 3.69 M/mm3 (3.60-5.2); RDW 14.2 % (11.6-15.6)
[2020-05-25 09:20] LABS: CALCIUM 7.9 mg/dL (8.5-10.1); CREATININE 0.3 mg/dL (0.55-1.3); MAGNESIUM 2.3 mg/dL (1.8-2.4); PHOSPHOROUS 1.3 mg/dL (2.5-4.9); POTASSIUM 5.2 mmol/L (3.5-5.1)
[2020-05-25 09:37] LABS: BLOOD UREA NITROGEN 2.8 mg/dL (7-18)
[2020-05-25] MEDS: PYRIDOXINE HCL 100 MG/1 ML VIAL IM SCH (09:44)
[2020-05-25] MEDS: FAMOTIDINE 20 MG/50 ML IVPB 20 MG/50 ML MG IVPB SCH ×2 (09:44→21:41)
--- NOTE | 2020-05-25 11:42 | PN ---
Progress Note (short form) - Note Progress Note: 29 y/o at 19+ weeks with hyperemesis gravidarum, electrolyte imbalance PMH of DM type 2 Patient states she's feeling better and has not vomited in at least 24 hours. Tolerating liquids PO. Desires some solid food. On exam: VSS Abdomen: soft, non-tender, gravid, FHR 155 bpm Plan: Attempt advancing diet Continue antiemetics, antacids Electrolyte replacement as per medicine Fingersticks FHR checks q shift Reassess
--- NOTE | 2020-05-25 12:07 | CONSULT ---
Consultation: REQUESTING PROVIDER: CONSULT REQUEST: We have been asked to medically evaluate this patient for gravidurum hyperemesis and Type 1 Diabetes Mellitus. HISTORY OF PRESENT ILLNESS: 29 year old female patient with past medical history that includes IDDM, 19 weeks , and marijuana use, who was transferred here from [facility] due to nausea and nonbloody vomiting for 2 weeks. Patient endorses vomiting greenish-yellowish fluid over 10 times per day, with no abdominal pain. She was given Zofran in [facility], without resolution of the patient's symptoms. She reported being upset that a Google search by her found that Zofran may be associated with an increased risk for defects. The patient smokes marijuana daily and reports that it gives her relief from her nausea for a few hours, but then the nausea comes back. Her last use of marijuana was 7 days ago. Overnight, patient reports no episode of vomiting. No acute events reported overnight. Today, the patient reports feeling better. She no longer feels feel nauseous and has an appetite today. Last time patient vo mited was yesterday morning. Patient is able to tolerate solid foods today. REVIEW OF SYSTEMS: CONSTITUTIONAL: feels well, has appetite Absent: no fever HEENT: Absent: no loss of smell CARDIOVASCULAR: Absent: no chest pain RESPIRATORY: Absent: no shortness of breath GASTROINTESTINAL: Absent: no abdominal pain, no diarrhea Absent: chest pain PHYSICAL EXAMINATION Vital Signs - 24 hr 05/24/20 05/24/20 05/24/20 13:00 17:00 22:14 Temperature 98.9 F 98.5 F 98.8 F Pulse Rate 94 H 87 94 H Respiratory 20 18 20 Rate Blood Pressure 144/87 123/74 125/79 O2 Sat by Pulse Oximetry (%) 05/25/20 05/25/20 05/25/20 02:00 06:00 09:49 Temperature 98.6 F 98 F 98.3 F Pulse Rate 93 H 93 H 99 H Respiratory 20 20 20 Rate Blood Pressure 123/79 134/89 128/84 O2 Sat by Pulse 97 100 98 Oximetry (%) GENERAL: AAOx3 HEENT: NCAT, PERRLA, EOMI, sclera anicteric, conjunctiva clear NECK: Normal ROM, supple, no lymphadenopathy, JVD, or masses LUNGS: CTABL no wheezes/ rhonchi/ rales. No distress, speaks in full sentences. No increased work of breathing. HEART: RRR, normal S1 S2, no M/R/G, peripheral pulses 2+ and equal b/l ABDOMEN: Soft, tenderness upon palpation in ULQ, + BS. No guarding or rebound. No hepatomegaly or splenomegaly. MSK: ROM WNL EXTREMITIES: Normal inspection. No peripheral edema. No clubbing or cyanosis. NEUROLOGICAL: CN II-XII intact. Normal speech SKIN: no rashes or lesions noted Laboratory Results - last 24 hr CBC, BMP 05/25/20 08:20 05/25/20 08:20 05/24/20 05/24/20 05/24/20 07:11 16:16 22:09 WBC RBC Hgb Hct MCV MCH MCHC RDW Plt Count MPV Absolute Neuts (auto) Neutrophils % Lymphocytes % Monocytes % Eosinophils % Basophils % Nucleated RBC % Sodium 135 L Potassium 4.5 Chloride 105 Carbon Dioxide 21 Anion Gap 9 BUN 2.7 L* Creatinine 0.4 L Est GFR (CKD-EPI)AfAm 163.13 Est GFR (CKD-EPI)NonAf 140.75 POC Glucometer 137 141 Random Glucose 92 Calcium 7.3 L Phosphorus 1.6 L Magnesium 1.4 L 05/25/20 05/25/20 05/25/20 06:47 08:20 08:20 WBC 9.0 RBC 3.69 Hgb 10.5 L Hct 30.4 L MCV 82.4 MCH 28.4 MCHC 34.5 RDW 14.2 Plt Count 292 MPV 8.2 Absolute Neuts (auto) 5.4 Neutrophils % 60.1 Lymphocytes % 31.6 Monocytes % 6.2 Eosinophils % 1.3 Basophils % 0.8 Nucleated RBC % 0 Sodium 135 L Potassium 5.2 H Chloride 106 Carbon Dioxide 22 Anion Gap 7 L BUN 2.8 L* Creatinine 0.3 L Est GFR (CKD-EPI)AfAm 179.33 Est GFR (CKD-EPI)NonAf 154.73 POC Glucometer 98 Random Glucose 99 Calcium 7.9 L Phosphorus 1.3 L Magnesium 2.3 05/25/20 05/25/20 09:31 10:57 WBC RBC Hgb Hct MCV MCH MCHC RDW Plt Count MPV Absolute Neuts (auto) Neutrophils % Lymphocytes % Monocytes % Eosinophils % Basophils % Nucleated RBC % Sodium Potassium Chloride Carbon Dioxide Anion Gap BUN Creatinine Est GFR (CKD-EPI)AfAm Est GFR (CKD-EPI)NonAf POC Glucometer 143 Random Glucose Calcium Phosphorus 4.1 Magnesium Active Medications Generic Name Dose Route Start Last Admin Trade Name Freq PRN Reason Stop Dose Admin Diphenhydramine HCl 25 mg 05/23/20 22:17 05/25/20 11:26 Benadryl Injection - IVPUSH 25 mg Q4H PRN Administration NAUSEA AND/OR VOMITING Famotidine/Sodium Chloride 20 mg in 50 mls @ 100 mls/hr 05/23/20 22:00 05/25/20 09:44 Pepcid 20 Mg Premixed Ivpb - IVPB 100 mls/hr BID CHUY Administration Insulin Aspart 1 vial 05/23/20 16:30 05/25/20 11:14 Novolog Vial Sliding Scale - SQ Not Given ACHS CHUY Protocol Metoclopramide HCl 10 mg 05/23/20 22:15 05/25/20 06:44 Reglan Injection - IVPUSH 10 mg Q8H CHUY Administration Pyridoxine HCl 100 mg 05/22/20 22:54 05/25/20 09:44 Vitamin B6 Injection - IM 100 mg DAILY CHUY Administration ASSESSMENT/PLAN: 29 year old female patient with past medical history that includes IDDM, 19 weeks , and marijuana use with last use 7 days ago per patient, who was transferred here from [facility] due to nausea and nonbloody vomiting for 2 weeks. #Hyperemesis Gravidum - Benadryl and Vitamin B6 - continue IV Hydration - Repeat ECG QTc was 450; down from initial EKG upon admission -avoid QTC prolonging treatments #Hypokalemia - K Repleted --> today's K was 4.5 - Monitor Electrolytes #Hypomagnesemia -repleted Magnesium --> today's Mg was 2.3 -monitor electrolytes #Diabetes Mellitus- Type 1 -insulin sliding scale ordered -BGM ACHS #FEN -1/2 NS -Monitor Electrolytes. -Diabetic Diet Dispo: Patient is cleared from a medical standpoint. Thank you for this consultative opportunity. Visit type - Emergency Visit Emergency Visit: No - New Patient This patient is new to me today: No - Critical Care Critical Care patient: No ATTENDING PHYSICIAN STATEMENT I saw and evaluated the patient. I reviewed the resident's note and discussed the case with the resident. I agree with the resident's findings and plan as documented. SUBJECTIVE: OBJECTIVE: ASSESSMENT AND PLAN:
--- NOTE | 2020-05-25 19:05 | PN ---
Teaching Attending Note Name of Resident: Bala White ATTENDING PHYSICIAN STATEMENT I saw and evaluated the patient. I reviewed the resident's note and discussed the case with the resident. I agree with the resident's findings and plan as documented. SUBJECTIVE: Patient s feeling better with NAD , No further nausea or vomiting, tolerating di et OBJECTIVE: Vital Signs Temperature 97.4 F L 05/25/20 17:00 Pulse Rate 101 H 05/25/20 17:00 Respiratory Rate 20 05/25/20 17:00 Blood Pressure 120/85 05/25/20 17:00 O2 Sat by Pulse Oximetry (%) 99 05/25/20 17:00 PE: per resident's note CBCD WBC 9.0 K/mm3 (4.0-10.0) 05/25/20 08:20 RBC 3.69 M/mm3 (3.60-5.2) 05/25/20 08:20 Hgb 10.5 GM/dL (10.7-15.3) L 05/25/20 08:20 Hct 30.4 % (32.4-45.2) L 05/25/20 08:20 MCV 82.4 fl (80-96) 05/25/20 08:20 MCHC 34.5 g/dl (32.0-36.0) 05/25/20 08:20 RDW 14.2 % (11.6-15.6) 05/25/20 08:20 Plt Count 292 K/MM3 (134-434) 05/25/20 08:20 MPV 8.2 fl (7.5-11.1) 05/25/20 08:20 CMP Sodium 135 mmol/L (136-145) L 05/25/20 08:20 Potassium 5.2 mmol/L (3.5-5.1) H 05/25/20 08:20 Chloride 106 mmol/L (98-107) 05/25/20 08:20 Carbon Dioxide 22 mmol/L (21-32) 05/25/20 08:20 Anion Gap 7 MMOL/L (8-16) L 05/25/20 08:20 BUN 2.8 mg/dL (7-18) L* 05/25/20 08:20 Creatinine 0.3 mg/dL (0.55-1.3) L 05/25/20 08:20 Random Glucose 99 mg/dL (74-106) 05/25/20 08:20 Calcium 7.9 mg/dL (8.5-10.1) L 05/25/20 08:20 Total Bilirubin 1.4 mg/dL (0.2-1) H 05/23/20 10:12 AST 65 U/L (15-37) H 05/23/20 10:12 ALT 106 U/L (13-61) H 05/23/20 10:12 Alkaline Phosphatase 86 U/L (45-117) 05/23/20 10:12 Total Protein 5.0 g/dl (6.4-8.2) L 05/23/20 10:12 Albumin 2.0 g/dl (3.4-5.0) L 05/23/20 10:12 Current Medications Generic Name Dose Route Start Last Admin Trade Name Freq PRN Reason Stop Dose Admin Diphenhydramine HCl 25 mg 05/23/20 22:17 05/25/20 11:26 Benadryl Injection - IVPUSH 25 mg Q4H PRN Administration NAUSEA AND/OR VOMITING Famotidine/Sodium Chloride 20 mg in 50 mls @ 100 mls/hr 05/23/20 22:00 05/25/20 09:44 Pepcid 20 Mg Premixed Ivpb - IVPB 100 mls/hr BID CHUY Administration Insulin Aspart 1 vial 05/23/20 16:30 05/25/20 17:56 Novolog Vial Sliding Scale - SQ Not Given ACHS CHUY Protocol Metoclopramide HCl 10 mg 05/23/20 22:15 05/25/20 15:21 Reglan Injection - IVPUSH 10 mg Q8H CHUY Administration Pyridoxine HCl 100 mg 05/22/20 22:54 05/25/20 09:44 Vitamin B6 Injection - IM 100 mg DAILY CHUY Administration Home Medications Medication Instructions Recorded Insulin Glargine,Hum.rec.anlog 13 unit SQ HS 05/22/20 [Basaglar Kwikpen U-100] Atorvastatin Ca [Lipitor] 40 mg PO DAILY 05/23/20 Insulin Lispro [Admelog] See Protocol SQ ACHS 05/23/20 Microbiology 05/22/20 10:15 Urine - Urine Clean Catch Urine Culture - Final Normal Urogenital Luisana ASSESSMENT AND PLAN: This patient is a 29yof ,19week , admitted for having gravidurum hyp eremesis. #Graviduram hyperemesis: most likely due to /marijuana. supportive care continue, continue IVF, diet as tolerated #Severe electrolyte abnormality with Potassium of 2.7 normal now, and mag of 1.5--> 1.4 ,electrolytes repleted continue to monitor the levels #[place] abstinence recommended. #T1DM continue with SS with coverage # week 19, Hr is being monitored by the OB nurse and COCKTAIL WAITRESS will sign off on the patient, please call us if needed.
[2020-05-26] MEDS: INSULIN SLIDING SCALE (NOVOLOG) 1 VIAL SQ SCH ×4 (06:25→22:25)
[2020-05-26] MEDS: METOCLOPRAMIDE HCL INJECTION 10 MG/2 ML VIAL IVPUSH SCH ×3 (06:25→21:28)
[2020-05-26] MEDS: FAMOTIDINE 20 MG/50 ML IVPB 20 MG/50 ML MG IVPB SCH ×2 (10:10→21:20)
[2020-05-26] MEDS: PYRIDOXINE HCL 100 MG/1 ML VIAL IM SCH (10:10)
--- NOTE | 2020-05-26 13:39 | PN ---
Progress Note (short form) - Note Progress Note: 19 week gestation with pregestational DM and hyperemesis gravidarum No complaints today VSS, afebrile heart by doppler 152 bpm. Glucose level on the higher limits, presently on sliding scale for insulin administration Will convert to AM/PM schedules with long and short acting insulins. Continue management and will discuss with medical department on possibility of discharging home.
[2020-05-27] MEDS: METOCLOPRAMIDE HCL INJECTION 10 MG/2 ML VIAL IVPUSH SCH ×3 (06:21→21:27)
[2020-05-27] MEDS ORDERED: INSULIN (LEVEMIR) 100 UNITS/ML UNITS SQ SCH (07:00)
[2020-05-27] MEDS ORDERED: INSULIN (LEVEMIR) 100 UNITS/ML UNITS SQ ONE (07:00)
[2020-05-27] MEDS: INSULIN (NOVOLOG) ASPART 100 UNITS/ML 10ML VIAL SQ SCH ×2 (08:25→17:36)
[2020-05-27] MEDS: PYRIDOXINE HCL 100 MG/1 ML VIAL IM SCH (10:11)
[2020-05-27] MEDS: FAMOTIDINE 20 MG/50 ML IVPB 20 MG/50 ML MG IVPB SCH ×2 (10:12→21:27)
[2020-05-27] MEDS ORDERED: INSULIN SLIDING SCALE (NOVOLOG) 1 VIAL SQ ONE ×2 (15:43→17:31)
[2020-05-27] MEDS ORDERED: INSULIN (NOVOLOG) ASPART 100 UNITS/ML 10ML VIAL SQ ONE (16:00)
[2020-05-28] MEDS: METOCLOPRAMIDE HCL INJECTION 10 MG/2 ML VIAL IVPUSH SCH ×3 (06:10→21:17)
[2020-05-28] MEDS ORDERED: INSULIN (LEVEMIR) 100 UNITS/ML UNITS SQ SCH (07:00)
[2020-05-28] MEDS ORDERED: INSULIN (NOVOLOG) ASPART 100 UNITS/ML 10ML VIAL SQ SCH (07:00)
[2020-05-28] MEDS ORDERED: INSULIN (LEVEMIR) 100 UNITS/ML UNITS SQ ONE (07:45)
--- NOTE | 2020-05-28 09:52 | PN ---
Progress Note (short form) - Note Progress Note: pt. states feeling better this am. tolerating diet. vss -af fs: 159 abd: soft, nt a/p iup at 20 3/7 weeks (EDC 10/12/20) admitted w HG and type 1DM poor control tolerating diet better fs improving w adjustments to coverage sono w MFM ordered for today psych cons (hx bipolar and depression off meds) will sign out to MD national sales director
[2020-05-28] MEDS ORDERED: INSULIN SLIDING SCALE (NOVOLOG) 1 VIAL SQ ONE ×2 (10:00→12:37)
[2020-05-28] MEDS: FAMOTIDINE 20 MG/50 ML IVPB 20 MG/50 ML MG IVPB SCH ×2 (10:50→22:51)
[2020-05-28] MEDS: PYRIDOXINE HCL 100 MG/1 ML VIAL IM SCH (10:50)
[2020-05-28] MEDS ORDERED: INSULIN (NOVOLOG) ASPART 100 UNITS/ML 10ML VIAL SQ ONE (13:15)
[2020-05-28] MEDS: INSULIN (NOVOLOG) ASPART 100 UNITS/ML 10ML VIAL SQ SCH (17:34)
[2020-05-28] MEDS ORDERED: ACETAMINOPHEN 325 MG TABLET (FP) PO ONE (21:45)
[2020-05-29] MEDS: METOCLOPRAMIDE HCL INJECTION 10 MG/2 ML VIAL IVPUSH SCH ×3 (06:41→22:15)
[2020-05-29] MEDS: INSULIN (LEVEMIR) 100 UNITS/ML UNITS SQ SCH (08:05)
[2020-05-29] MEDS ORDERED: SODIUM CHLORIDE 1,000 ML IV SCH (09:00)
--- NOTE | 2020-05-29 09:09 | PN ---
Progress Note (short form) - Note Progress Note: pt. states not feeling as well this morning. vomited x 1. states received her pepcid later than usual last night. has not eaten yet , awaiting short acting insulin prior to meal. vs: bp 144/89 hr: 107 fs 168. o2 sat 100 abd: soft, nt ve: def a/p iup at 20 4/7 week type 1 dm admitted w hg and poor control dm fs improving w regimen adjustments. patient thinks she will benefit from some iv fluid which usually makes her feel better after a vomiting episode ordered iv fluid and repeat labs (cbc, cmp) cont close monitoring. sono yest w mfm : possible symmetric iugr?, Nl sue f/u recommended for 2 weeks to complete anatomic survey and monitor growth also needs echo above d/w conference organizer
[2020-05-29] MEDS: INSULIN (NOVOLOG) ASPART 100 UNITS/ML 10ML VIAL SQ SCH ×2 (09:21→16:56)
[2020-05-29] MEDS: PYRIDOXINE HCL 100 MG/1 ML VIAL IM SCH (10:30)
[2020-05-29] MEDS: FAMOTIDINE 20 MG/50 ML IVPB 20 MG/50 ML MG IVPB SCH ×2 (10:30→22:00)
[2020-05-29 10:45] LABS: BASO % 0.9 % (0-2.0); EOS % 0.4 % (0-4.5); HEMATOCRIT 26.5 % (32.4-45.2); LYMPH % 22.4 % (8-40); MCH 28.3 pg (25.7-33.7); MCHC 33.8 g/dl (32.0-36.0); MEAN CELL VOLUME 83.8 fl (80-96); MEAN PLT VOLUME 7.6 fl (7.5-11.1); MONO % 5.7 % (3.8-10.2); NEUT % 70.6 % (42.8-82.8); PLATELET COUNT 299 K/MM3 (134-434); RBC 3.17 M/mm3 (3.60-5.2); WHITE BLOOD COUNT 7.5 K/mm3 (4.0-10.0)
[2020-05-29 11:15] LABS: BILIRUBIN,TOTAL 0.5 mg/dL (0.2-1); BLOOD UREA NITROGEN 12.2 mg/dL (7-18); CALCIUM 8.4 mg/dL (8.5-10.1); CREATININE 0.5 mg/dL (0.55-1.3); POTASSIUM 4.6 mmol/L (3.5-5.1)
[2020-05-29] MEDS ORDERED: INSULIN SLIDING SCALE (NOVOLOG) 1 VIAL SQ ONE (16:50)
[2020-05-30] MEDS ORDERED: SODIUM CHLORIDE 1,000 ML IV SCH (04:45)
[2020-05-30] MEDS ORDERED: PROMETHAZINE HCL 25 MG/1 ML VIAL IVPB ONE (04:45)
[2020-05-30] MEDS: METOCLOPRAMIDE HCL INJECTION 10 MG/2 ML VIAL IVPUSH SCH ×4 (06:12→20:04)
[2020-05-30] MEDS: INSULIN (LEVEMIR) 100 UNITS/ML UNITS SQ SCH ×2 (08:18→22:25)
[2020-05-30] MEDS ORDERED: INSULIN SLIDING SCALE (NOVOLOG) 1 VIAL SQ ONE (08:26)
[2020-05-30] MEDS: INSULIN (NOVOLOG) ASPART 100 UNITS/ML 10ML VIAL SQ SCH (08:30)
[2020-05-30] MEDS: FAMOTIDINE 20 MG/50 ML IVPB 20 MG/50 ML MG IVPB SCH ×2 (10:50→22:09)
[2020-05-30] MEDS: PYRIDOXINE HCL 100 MG/1 ML VIAL IM SCH (10:54)
[2020-05-30 13:11] VITALS: BMI 19.4
[2020-05-30] MEDS ORDERED: ACETAMINOPHEN 500 MG TABLET (FP) PO ONE (13:29)
[2020-05-30] MEDS ORDERED: ACETAMINOPHEN 1000 MG/100 ML VIAL (NON FORMULARY) IVPB ONE ×3 (14:25→22:38)
[2020-05-30] MEDS ORDERED: LACTATED RINGERS SOLUTION 1,000 ML/1,000 ML INFUS.BAG IV SCH (14:30)
[2020-05-30] MEDS: LABETALOL HCL 100 MG TABLET (FP) PO SCH ×2 (15:19→22:10)
[2020-05-30] MEDS: INSULIN SLIDING SCALE (NOVOLOG) 1 VIAL SQ SCH ×2 (17:58→22:16)
[2020-05-30 17:59] LABS: BASO % 0.5 % (0-2.0); EOS % 0.4 % (0-4.5); HEMATOCRIT 25.5 % (32.4-45.2); HEMOGLOBIN 8.5 GM/dL (10.7-15.3); LYMPH % 24.8 % (8-40); MCH 27.5 pg (25.7-33.7); MCHC 33.3 g/dl (32.0-36.0); MEAN CELL VOLUME 82.5 fl (80-96); MEAN PLT VOLUME 7.2 fl (7.5-11.1); MONO % 7.6 % (3.8-10.2); NEUT % 66.7 % (42.8-82.8); PLATELET COUNT 302 K/MM3 (134-434); RBC 3.09 M/mm3 (3.60-5.2)
--- NOTE | 2020-05-30 18:17 | CONSULT ---
Consultation: REQUESTING PROVIDER: Dr. Singh CONSULT REQUEST: We have been asked to medically evaluate this patient for Diabetes management, hyperemesis. HISTORY OF PRESENT ILLNESS: 29 F IUP at 20 5/7 week h/o T1DM, bipolar depression, admitted for hyperemesis gravidum presents with refractory vomiting w/ severe hypokalemia and hyperglycemia. Patient denies h/o HTN prior to but recently noticed blood pressures have been elevated. Patient received multiple rounds of anti- emetics w/ little-no relief, and continuous K replacement. Patient currently endorses frequent NB-NB vomiting, with abdominal discomfort, LIZARRAGA, and fatigue. Patient denies overt CP/SOB/vision changes. PHYSICAL EXAMINATION Vital Signs - 24 hr 05/29/20 05/30/20 22:00 10:00 Temperature 98.1 F 98.5 F Pulse Rate 96 H 105 H Respiratory 18 20 Rate Blood Pressure 137/79 155/97 GA AAox3, speaking in full sentences, tired appearing HEENT Dry MM, neck supple, EOMI, NC/AT Chest CTAB, no crackles or wheezing CVS s1, S2+, RRR Abd gravid uterus, soft, mild tenderness along lower abdomen, BS+, no guarding Ext no LE edema, no calf tenderness no CVA tenderness, no suprapubic tenderness Laboratory Results - last 24 hr 05/29/20 05/29/20 05/29/20 20:03 22:00 22:45 WBC RBC Hgb Hct MCV MCH MCHC RDW Plt Count MPV Absolute Neuts (auto) Neutrophils % Lymphocytes % Monocytes % Eosinophils % Basophils % Nucleated RBC % POC Glucometer 232 198 185 05/30/20 05/30/20 05/30/20 00:39 04:10 09:46 WBC RBC Hgb Hct MCV MCH MCHC RDW Plt Count MPV Absolute Neuts (auto) Neutrophils % Lymphocytes % Monocytes % Eosinophils % Basophils % Nucleated RBC % POC Glucometer 146 153 150 05/30/20 05/30/20 05/30/20 12:25 14:32 17:20 WBC 8.0 RBC 3.09 L Hgb 8.5 L Hct 25.5 L MCV 82.5 MCH 27.5 MCHC 33.3 RDW 14.0 Plt Count 302 MPV 7.2 L Absolute Neuts (auto) 5.4 Neutrophils % 66.7 Lymphocytes % 24.8 Monocytes % 7.6 Eosinophils % 0.4 Basophils % 0.5 Nucleated RBC % 0 POC Glucometer 80 109 05/30/20 17:53 WBC RBC Hgb Hct MCV MCH MCHC RDW Plt Count MPV Absolute Neuts (auto) Neutrophils % Lymphocytes % Monocytes % Eosinophils % Basophils % Nucleated RBC % POC Glucometer 129 Active Medications Generic Name Dose Route Start Last Admin Trade Name Jose Antonioq PRN Reason Stop Dose Admin Famotidine/Sodium Chloride 20 mg in 50 mls @ 100 mls/hr 05/23/20 22:00 05/30/20 10:50 Pepcid 20 Mg Premixed Ivpb - IVPB 100 mls/hr BID CHUY Administration Lactated Ringer's 1,000 ml in 1,000 mls @ 75 mls/hr 05/30/20 14:30 05/30/20 14:29 Lactated Ringers Solution IV 75 mls/hr ASDIR CHUY Administration Insulin Aspart 1 vial 05/30/20 16:30 05/30/20 17:58 Novolog Vial Sliding Scale - SQ Not Given ACHS [facility] Protocol Insulin Detemir 8 units 05/30/20 22:00 Levemir Vial SQ BID@0700,2200 CHUY Labetalol HCl 100 mg 05/30/20 14:40 05/30/20 15:19 Normodyne - PO 100 mg BID CHUY Administration Metoclopramide HCl 5 mg 05/30/20 15:00 05/30/20 15:14 Reglan Injection - IVPUSH 5 mg Q4H CHUY Administration Pyridoxine HCl 100 mg 05/22/20 22:54 05/30/20 10:54 Vitamin B6 Injection - IM 100 mg DAILY CHUY Administration ASSESSMENT/PLAN: 29 F IUP at 20 5/7 week Hyperemesis gravidum Gestational HTN, r/o Pre-Eclampsia T1DM with hyperglycemia Hypokalemia (resolved) ?Acalculous cholecystitis Transaminitis Plan: Levemir BID for best BG coverage, supplement w/ sliding scale insulin according to BGM Reglan Q4H dosing, Obtain EKG for QTc, supplement B6, liquid diet as tolerated Obtain UA to check for proteinuria, trend LFTs, if continuing to trend up then send for LDH/Uric acid/Pt/PTT Labetolol PO for BP management, if not able to tolerate PO then IV hydralazine as needed to keep systolic BP <140mmHg Daily monitoring of CBC/CMP Send hepatitis panel in view of transaminitis Recommend GI evaluation for further evaluation of abnormal LFTs Recommend Endocrine evaluation for management of IDDM Rest of management per primary team Dispo: We will continue to follow the patient. Thank you for this consultative opportunity. Visit type - Emergency Visit Emergency Visit: Yes ED Registration Date: 05/22/20 Care time: The patient presented to the Emergency Department on the above date and was hospitalized for further evaluation of their emergent condition. - New Patient This patient is new to me today: Yes Date on this admission: 05/30/20 - Critical Care Critical Care patient: No
[2020-05-30 18:24] LABS: ALBUMIN 1.8 g/dl (3.4-5.0); BILIRUBIN,TOTAL 0.4 mg/dL (0.2-1); CALCIUM 7.9 mg/dL (8.5-10.1); CREATININE 0.3 mg/dL (0.55-1.3); TOT PROT 4.6 g/dl (6.4-8.2)
--- NOTE | 2020-05-30 18:52 | PN ---
Progress Note (short form) - Note Progress Note: 20w+ with nausea and vomiting in Noted medicine consultation note States that since last night started feeling n/v again, requests liquid diet Occ headaches, tolerating fluids, feeling fatigued VS reviewed BP 155/97 Abd soft, non tender Denies vag bleeding Labs for today reviewed Will follow medicine recs FHR q shift 24 hr urine collection for protein Reglan, Pepcid Benadryl PRN Insulin as per medicine orders Labetalol 100mg BID Prior to discharge will set nicolas with MFM for follow up
[2020-05-30 22:18] VITALS: TEMP 98
[2020-05-31] MEDS: METOCLOPRAMIDE HCL INJECTION 10 MG/2 ML VIAL IVPUSH SCH ×4 (00:31→11:20)
[2020-05-31] MEDS: INSULIN SLIDING SCALE (NOVOLOG) 1 VIAL SQ SCH (07:36)
[2020-05-31] MEDS: INSULIN (LEVEMIR) 100 UNITS/ML UNITS SQ SCH (07:37)
--- NOTE | 2020-05-31 07:58 | CON.GI ---
Consult Consult Specialty:: GI Referred by:: Hospitalist Service Reason for Consultation:: Vomiting - History of Present Illness Chief Complaint: Vomiting History of Present Illness: 29 F at 20 5/7 week transferred from [facility] for further Antepartum care. Has been having episodes of vomiting since 8 weeks . No abdominal pain associated with this. Noted to have elevated blood pressure and is being treated for diabetes. Vomiting improved today. Asked to comment on elevated transaminases. States that aside from being told of elevated liver chemistries when she was on meds for Bipolar d/o, she denies known personal or family history of liver disease. Complains of migraines now. States that she smoke marijuana once before she came to the hospital to help with her nausea. Denies h/o blood transfusions, IVDA, known history of exposure to viral hepatitides - History Source History Provided By: Patient, Medical Record Limitations to Obtaining History: No Limitations - Past Medical History HOME DEMONSTRATION AGENT: Yes: Migraine ...LMP: 01/06/20 ...: Yes Psych: Yes: Bipolar (No on treatment for multiple years) Endocrine: Yes: Diabetes Mellitus (Type 1 DM) - Past Surgical History Past Surgical History: Yes: Cholecystectomy (Laparoscopic) - Alcohol/Substance Use Hx Alcohol Use: No History of Substance Use: reports: Marijuana (states smoking once prior to her admission) - Smoking History Smoking history: Never smoked Have you smoked in the past 12 months: Yes If you are a former smoker, when did you quit?: 01/2020 - Social History Usual Living Arrangement: With Spouse ADL: Independent Occupation: Not working Place of : [facility] History of Recent Travel: No Home Medications - Allergies Allergies/Adverse Reactions: Allergies Allergy/AdvReac Type Severity Reaction Status Date / Time apple Allergy Verified 05/22/20 18:51 apples Allergy Uncoded 05/22/20 08:50 - Home Medications Home Medications: Ambulatory Orders Insulin Glargine,Hum.rec.anlog [Basagldevin Lira U-100] 13 unit SQ HS 05/22/20 Atorvastatin Ca [Lipitor] 40 mg PO DAILY 05/23/20 Insulin Lispro [Admelog] See Protocol SQ ACHS 05/23/20 Family Medical History Family History: Unremarkable Family Hx Cancer: Father (Lung: 59) Family Hx Cardiac Disorders: Mother (CHF: 49) Other Family History: 2 brothers, healthy. No family history of liver disease. No family history of colorectal cancer or other GI malignancy Review of Systems - Review of Systems Constitutional: denies: Chills, Fever Cardiovascular: denies: Chest Pain Respiratory: denies: Cough Gastrointestinal: reports: Nausea, Vomiting. denies: Abdominal Pain, Diarrhea Physical Exam-GI Vital Signs: Vital Signs Temperature 98.0 F 05/30/20 22:17 Pulse Rate 108 H 05/30/20 22:17 Respiratory Rate 20 05/30/20 22:17 Blood Pressure 152/92 05/30/20 22:17 O2 Sat by Pulse Oximetry (%) 99 05/30/20 18:00 Constitutional: Yes: Calm Eyes: No: Sclera Icterus Cardiovascular: Yes: Tachycardia Respiratory: Yes: CTA Bilaterally Gastrointestinal Inspection: Yes: Scars (healed trochar scars). No: Distention ...Auscultate: Yes: Normoactive Bowel Sounds ...Palpate: Yes: Soft. No: Hepatomegaly, Splenomegaly, Tenderness ...Percussion: No: Tympanitic Edema: No (No LE edema) Neurological: Yes: Alert, Oriented Labs: CBC, BMP 05/30/20 17:20 05/30/20 17:20 Hepatic Panel Total Bilirubin 0.4 mg/dL (0.2-1) 05/30/20 17:20 AST 47 U/L (15-37) H 05/30/20 17:20 ALT 102 U/L (13-61) H 05/30/20 17:20 Alkaline Phosphatase 77 U/L (45-117) 05/30/20 17:20 Albumin 1.8 g/dl (3.4-5.0) L 05/30/20 17:20 Problem List - Problems (1) Hyperemesis gravidarum Assessment/Plan: Suspect hyperemesis gravidarum as current symptomatology has intermittently persisted from 8 weeks gestation Exclusion of concomitant pathology such as preeclamsia per performance solutions specialist. Patient is s/p cholecystectomy. Advise: Antiemetic regimen as per Deputy Chief Magistrate Supportive measures IV hydration Diabetes is being managed by Internal medicine Code(s): O21.0 - MILD HYPEREMESIS GRAVIDARUM (2) Elevated transaminase level Assessment/Plan: Can be related to hyperemesis, as well as preeclampsia, however also started on labetalol Check abdominal US Avoid hepatotoxic agents Monitor LFTs Check CPK Acute hepatitis serologies pending Further serologic work-up as outpatient if they persist Code(s): R74.0 - NONSPEC ELEV OF LEVELS OF TRANSAMNS & LACTIC ACID DEHYDRGNSE
[2020-05-31 09:03] LABS: BASO % 1.1 % (0-2.0); EOS % 0.4 % (0-4.5); HEMATOCRIT 29.2 % (32.4-45.2); HEMOGLOBIN 9.7 GM/dL (10.7-15.3); MCH 27.7 pg (25.7-33.7); MCHC 33.4 g/dl (32.0-36.0); MEAN PLT VOLUME 7.1 fl (7.5-11.1); MONO % 5.5 % (3.8-10.2); PLATELET COUNT 333 K/MM3 (134-434); RBC 3.52 M/mm3 (3.60-5.2); RDW 13.9 % (11.6-15.6); WHITE BLOOD COUNT 7.2 K/mm3 (4.0-10.0)
[2020-05-31 09:30] LABS: ALBUMIN 2.1 g/dl (3.4-5.0); BILIRUBIN,TOTAL 0.6 mg/dL (0.2-1); CALCIUM 8.2 mg/dL (8.5-10.1); CREATININE 0.4 mg/dL (0.55-1.3); POTASSIUM 3.9 mmol/L (3.5-5.1); TOT PROT 5.4 g/dl (6.4-8.2)
[2020-05-31] MEDS: FAMOTIDINE 20 MG/50 ML IVPB 20 MG/50 ML MG IVPB SCH (09:59)
[2020-05-31] MEDS: PYRIDOXINE HCL 100 MG/1 ML VIAL IM SCH (10:13)
--- NOTE | 2020-05-31 10:21 | CONSULT ---
Consult Consult Specialty:: Endocrinology Referred by:: Ryan Caldwell Reason for Consultation:: DM management - History of Present Illness Chief Complaint: Nausea, vomiting History of Present Illness: This is a 29 year old female patient with h/O DM since age 13 or 14, treated with Insulin and Metformin initially and on Insulin only for about a year, 19 weeks , and marijuana use, who was transferred here from [facility] due to nausea and nonbloody vomiting for 2 weeks. Patient endorses vomiting greenish-yellowish fluid over 10 times per day, with no abdominal pain. She was given Zofran in [facility], without resolution of the patient's symptoms. She reported being upset that a Google search by her found that Zofran may be associated with an increased risk for defects. The patient smokes marijuana daily and reports that it gives her relief from her nausea for a few hours, but then the nausea comes back. Her last use of marijuana was 5 days ago before admission. Pt referred for management of DM. Pt give h/o DKA about 3 times, the last one about a year ago. She says she was told she was type 1 Diabetic only about a year ago. Family h/o DM in mother. FS at home 60 to 80 in AM and up to 200s in the evening. Gets symptoms of hypoglycemia when FS around 100. Currently on Liquid diet. 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 ...LMP: 01/06/20 ...: Yes Psych: Yes: Bipolar (No on treatment for multiple years) Endocrine: Yes: Diabetes Mellitus (Type 1 DM) - Past Surgical History Past Surgical History: Yes: Cholecystectomy (Laparoscopic) - Alcohol/Substance Use Hx Alcohol Use: No History of Substance Use: reports: Marijuana (states smoking once prior to her admission) - Smoking History Smoking history: Never smoked Have you smoked in the past 12 months: Yes If you are a former smoker, when did you quit?: 01/2020 - Social History Usual Living Arrangement: With Spouse ADL: Independent Occupation: Not working History of Recent Travel: No Home Medications - Allergies Allergies/Adverse Reactions: Allergies Allergy/AdvReac Type Severity Reaction Status Date / Time apple Allergy Verified 05/22/20 18:51 apples Allergy Uncoded 05/22/20 08:50 - Home Medications Home Medications: Ambulatory Orders Insulin Glargine,Hum.rec.anlog [Basaglar Kwikpen U-100] 13 unit SQ HS 05/22/20 Atorvastatin Ca [Lipitor] 40 mg PO DAILY 05/23/20 Insulin Lispro [Admelog] See Protocol SQ ACHS 05/23/20 Family Medical History Family History: Unremarkable Family Hx Cancer: Father (Lung: 59) Family Hx Cardiac Disorders: Mother (CHF: 49) Family Hx Diabetes: Mother Other Family History: 2 brothers, healthy. No family history of liver disease. No family history of colorectal cancer or other GI malignancy Review of Systems - Review of Systems Constitutional: reports: Malaise, Weakness Eyes: reports: No Symptoms HENT: reports: No Symptoms Neck: reports: No Symptoms Cardiovascular: reports: No Symptoms Respiratory: reports: No Symptoms Gastrointestinal: reports: Nausea, Vomiting Genitourinary: reports: No Symptoms Musculoskeletal: reports: No Symptoms Integumentary: reports: No Symptoms Neurological: reports: No Symptoms Physical Exam Vital Signs: Vital Signs Temperature 98.0 F 05/30/20 22:17 Pulse Rate 108 H 05/30/20 22:17 Respiratory Rate 20 05/30/20 22:17 Blood Pressure 152/92 05/30/20 22:17 O2 Sat by Pulse Oximetry (%) 99 05/30/20 18:00 Constitutional: Yes: No Distress, Calm Eyes: Yes: Conjunctiva Clear, EOM Intact HENT: Yes: Atraumatic, Normocephalic Neck: Yes: Supple, Trachea Midline Cardiovascular: Yes: Regular Rate and Rhythm Respiratory: Yes: Regular, CTA Bilaterally Gastrointestinal: Yes: Normal Bowel Sounds Musculoskeletal: Yes: WNL Extremities: Yes: WNL Edema: No Neurological: Yes: Alert, Oriented Labs: CBC, BMP 05/31/20 08:45 05/31/20 08:45 Assessment/Plan AP: Hyperemesis Gravidarum T1DM Diet discussed Advance diet as tolerated Got Levemir 8 units in AM. Add 4 units more today at HS, increase by 2 unit at night every 2 to 3 days until morning Blood sugar 70 to 95 Novolog coverage with food. No Novolog if pt skips the meal. No Novolog coverage for blood sugar done 2 hr pp unless FS >250 when 2 units of Novolog may be given. Start D5 with Ringer's lactate if blood sugar drops to less than 70s on Levemir Will f/u
[2020-05-31] MEDS ORDERED: INSULIN SLIDING SCALE (NOVOLOG) 1 VIAL SQ SCH ×3 (11:00→22:00)
[2020-05-31] MEDS: LABETALOL HCL 100 MG TABLET (FP) PO SCH (11:27)
--- NOTE | 2020-05-31 12:29 | DS ---
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 Vital Signs: Vital Signs Temperature 98.0 F 05/30/20 22:17 Pulse Rate 108 H 05/30/20 22:17 Respiratory Rate 20 05/30/20 22:17 Blood Pressure 152/92 05/30/20 22:17 O2 Sat by Pulse Oximetry (%) 99 05/30/20 18:00 Constitutional: Yes: Well Nourished, No Distress, Calm Eyes: Yes: WNL, Conjunctiva Clear, EOM Intact HENT: Yes: WNL, Atraumatic, Normocephalic Neck: Yes: WNL, Supple, Trachea Midline Cardiovascular: Yes: WNL, Regular Rate and Rhythm Respiratory: Yes: WNL, Regular, CTA Bilaterally Gastrointestinal: Yes: WNL ...Rectal Exam: Yes: WNL Renal/: Yes: WNL Breast(s): Yes: WNL Musculoskeletal: Yes: WNL Extremities: Yes: WNL Integumentary: Yes: WNL Neurological: Yes: WNL, Alert, Oriented ...Motor Strength: WNL Psychiatric: Yes: WNL, Alert, Oriented Labs: CBC, BMP 05/31/20 08:45 05/31/20 08:45 Remarks - Remarks Remarks: * 29 yo with Hypermisis gravidarum with nausa and vomiting as well as daiabtes for which she is on insulin. pt also was diagnosed with elvated Blood pressures and was placed on labetolol. Pt feels much better today ambulating at home and ststes she is not and has not vomited today. plan discharge home pt aware of her insulin dosage and will continue with outpatient managment and control of her blood pressures * she has been offered to follow up with Dr julian however she stats she want to go to [facility] [place], Discharge Summary Problems reviewed: Yes Reason For Visit: HYPEREMESIS GRAVIDARUM Current Active Problems 19 weeks gestation of (Acute) Elevated transaminase level (Acute) Excessive weight loss (Acute) Hyperemesis gravidarum (Acute) No care in current (Acute) Condition: Stable - Instructions Referrals: ON STAFF,NOT [Primary Care Provider] - Disposition: HOME - Home Medications Comprehensive Discharge Medication List: Ambulatory Orders Insulin Glargine,Hum.rec.anlog [Lindsey Lira U-100] 13 unit SQ HS 05/22/20 Atorvastatin Ca [Lipitor] 40 mg PO DAILY 05/23/20 Insulin Lispro [Admelog] See Protocol SQ ACHS 05/23/20
--- NOTE | 2020-05-31 13:11 | CONSULT ---
Consultation: REQUESTING PROVIDER: CONSULT REQUEST: We have been asked to medically evaluate this patient for gravidurum hyperemesis and Type 1 Diabetes Mellitus. HISTORY OF PRESENT ILLNESS: 29 year old female patient with past medical history that includes IDDM, 19 weeks , and marijuana use, who was transferred here from [facility] due to nausea and nonbloody vomiting for 2 weeks. Patient endorses vomiting greenish-yellowish fluid over 10 times per day, with no abdominal pain. She was given Zofran in [facility], without resolution of the patient's symptoms. She reported being upset that a Google search by her found that Zofran may be associated with an increased risk for defects. The patient smokes marijuana daily and reports that it gives her relief from her nausea for a few hours, but then the nausea comes back. Her last use of marijuana was over 2 weeks ago. Overnight patient reports to have vomited once. This morning patient reports that she has no episodes of vomiting but feels nauseous. States that her symptoms were worse 2 days ago and had multiple episodes of n/v 2 nights ago. No other acute complaints at this time. REVIEW OF SYSTEMS: CONSTITUTIONAL: nauseous; appears uncomfortable Absent: no fever HEENT: Absent: no loss of smell CARDIOVASCULAR: Absent: no chest pain RESPIRATORY: Absent: no shortness of breath GASTROINTESTINAL: nauseous Absent: no abdominal pain, no diarrhea Absent: chest pain PHYSICAL EXAMINATION Vital Signs - 24 hr 05/30/20 05/30/20 05/30/20 18:00 20:00 22:17 Temperature 98.2 F 98.0 F Pulse Rate 104 H 115 H 108 H Respiratory 22 H 20 20 Rate Blood Pressure 148/100 138/88 152/92 O2 Sat by Pulse 99 Oximetry (%) GENERAL: AAOx3 HEENT: NCAT, PERRLA, EOMI, sclera anicteric, conjunctiva clear NECK: Normal ROM, supple, no lymphadenopathy, JVD, or masses LUNGS: CTABL no wheezes/ rhonchi/ rales. No distress, speaks in full sentences. No increased work of breathing. HEART: RRR, normal S1 S2, no M/R/G, peripheral pulses 2+ and equal b/l ABDOMEN: Soft, no tenderness. No guarding or rebound. No hepatomegaly or splenomegaly. MSK: ROM WNL EXTREMITIES: Normal inspection. No peripheral edema. No clubbing or cyanosis. NEUROLOGICAL: CN II-XII intact. Normal speech SKIN: no rashes or lesions noted Laboratory Results - last 24 hr CBC, BMP 05/31/20 08:45 05/31/20 08:45 05/30/20 05/30/20 05/30/20 14:32 17:20 17:20 WBC 8.0 RBC 3.09 L Hgb 8.5 L Hct 25.5 L MCV 82.5 MCH 27.5 MCHC 33.3 RDW 14.0 Plt Count 302 MPV 7.2 L Absolute Neuts (auto) 5.4 Neutrophils % 66.7 Lymphocytes % 24.8 Monocytes % 7.6 Eosinophils % 0.4 Basophils % 0.5 Nucleated RBC % 0 Sodium 137 Potassium 4.0 Chloride 106 Carbon Dioxide 24 Anion Gap 7 L BUN 8.0 Creatinine 0.3 L Est GFR (CKD-EPI)AfAm 179.33 Est GFR (CKD-EPI)NonAf 154.73 POC Glucometer 109 Random Glucose 140 H Calcium 7.9 L Total Bilirubin 0.4 AST 47 H ALT 102 H Alkaline Phosphatase 77 Total Protein 4.6 L Albumin 1.8 L 05/30/20 05/30/20 05/31/20 17:53 22:12 05:16 WBC RBC Hgb Hct MCV MCH MCHC RDW Plt Count MPV Absolute Neuts (auto) Neutrophils % Lymphocytes % Monocytes % Eosinophils % Basophils % Nucleated RBC % Sodium Potassium Chloride Carbon Dioxide Anion Gap BUN Creatinine Est GFR (CKD-EPI)AfAm Est GFR (CKD-EPI)NonAf POC Glucometer 129 127 157 Random Glucose Calcium Total Bilirubin AST ALT Alkaline Phosphatase Total Protein Albumin 05/31/20 05/31/20 05/31/20 06:50 08:45 08:45 WBC 7.2 RBC 3.52 L Hgb 9.7 L Hct 29.2 L MCV 83.0 MCH 27.7 MCHC 33.4 RDW 13.9 Plt Count 333 MPV 7.1 L Absolute Neuts (auto) 5.0 Neutrophils % 70.0 Lymphocytes % 23.0 Monocytes % 5.5 Eosinophils % 0.4 Basophils % 1.1 Nucleated RBC % 0 Sodium 134 L Potassium 3.9 Chloride 102 Carbon Dioxide 24 Anion Gap 7 L BUN 5.0 L Creatinine 0.4 L Est GFR (CKD-EPI)AfAm 163.13 Est GFR (CKD-EPI)NonAf 140.75 POC Glucometer 166 Random Glucose 173 H Calcium 8.2 L Total Bilirubin 0.6 AST 48 H ALT 119 H Alkaline Phosphatase 88 Total Protein 5.4 L Albumin 2.1 L 05/31/20 11:23 WBC RBC Hgb Hct MCV MCH MCHC RDW Plt Count MPV Absolute Neuts (auto) Neutrophils % Lymphocytes % Monocytes % Eosinophils % Basophils % Nucleated RBC % Sodium Potassium Chloride Carbon Dioxide Anion Gap BUN Creatinine Est GFR (CKD-EPI)AfAm Est GFR (CKD-EPI)NonAf POC Glucometer 240 Random Glucose Calcium Total Bilirubin AST ALT Alkaline Phosphatase Total Protein Albumin Active Medications Generic Name Dose Route Start Last Admin Trade Name Freq PRN Reason Stop Dose Admin Diphenhydramine HCl 25 mg 05/30/20 22:24 05/31/20 05:27 Benadryl Injection - IVPB 25 mg Q4H PRN Administration NAUSEA AND/OR VOMITING Famotidine/Sodium Chloride 20 mg in 50 mls @ 100 mls/hr 05/23/20 22:00 05/31/20 09:59 Pepcid 20 Mg Premixed Ivpb - IVPB 100 mls/hr BID CHUY Administration Lactated Ringer's 1,000 ml in 1,000 mls @ 75 mls/hr 05/30/20 14:30 05/30/20 14:29 Lactated Ringers Solution IV 75 mls/hr ASDIR CHUY Administration Insulin Aspart 1 vial 05/31/20 22:00 Novolog Vial Sliding Scale - SQ HS CHUY Protocol Insulin Aspart 1 vial 05/31/20 11:00 05/31/20 11:27 Novolog Vial Sliding Scale - SQ 3 units TIDAC CHUY Administration Protocol Insulin Detemir 8 units 06/01/20 07:00 Levemir Vial SQ 0700 CHUY Insulin Detemir 4 units 05/31/20 22:00 Levemir Vial SQ HS CHUY Labetalol HCl 100 mg 05/30/20 14:40 05/31/20 11:27 Normodyne - PO 100 mg BID CHUY Administration Metoclopramide HCl 5 mg 05/30/20 15:00 05/31/20 11:20 Reglan Injection - IVPUSH 5 mg Q4H CHUY Administration Pyridoxine HCl 100 mg 05/22/20 22:54 05/31/20 10:13 Vitamin B6 Injection - IM 100 mg DAILY CHUY Administration ASSESSMENT/PLAN: 29 year old female patient with past medical history that includes IDDM, 19 weeks , and marijuana use with last use 7 days ago per patient, who was transferred here from [facility] due to nausea and nonbloody vomiting for 2 weeks. #Hyperemesis Gravidum - Reglan PRN - continue IV Hydration - Repeat ECG QTc was 450; down from initial EKG upon admission -avoid QTC prolonging treatments -f/u GI reccs #Diabetes Mellitus- Type 1 -insulin sliding scale ordered -BGM ACHS -f/u endocrine reccs #FEN -1/2 NS -Monitor Electrolytes. -Diabetic Diet Dispo: Patient is cleared from a medical standpoint. Thank you for this consultative opportunity. . Visit type - Emergency Visit Emergency Visit: No - New Patient This patient is new to me today: Yes Date on this admission: 05/31/20 - Critical Care Critical Care patient: No ATTENDING PHYSICIAN STATEMENT I saw and evaluated the patient. I reviewed the resident's note and discussed the case with the resident. I agree with the resident's findings and plan as documented. SUBJECTIVE: OBJECTIVE: ASSESSMENT AND PLAN:
[2020-05-31 13:53] VITALS: BP 147/86; PULSE 98
--- NOTE | 2020-05-31 16:51 | PN ---
Teaching Attending Note Name of Resident: Bala White ATTENDING PHYSICIAN STATEMENT I saw and evaluated the patient. I reviewed the resident's note and discussed the case with the resident. I agree with the resident's findings and plan as documented. SUBJECTIVE: Patient upset with her care. Unhappy with how her insulin has been managed. She believes that her symptoms are due to her hyperglycemia OBJECTIVE: Vital Signs Period Temp Pulse Resp BP Sys/Glass Pulse Ox Last 24 Hr 98.0 F-98.2 F 98-115 18-22 138-152/86-100 99 Patient refused physical exam ASSESSMENT AND PLAN: 29 y/o F with Hx of IDDM type 1, marijuana use, and 18 weeks who presents for nausea/vomiting, Medicine consulted for assitance in management. Nausea/Vomiting: DDx. Gastroparesis vs. marijuana Hyperemeisis vs. Hyperemeisis gravidum Patient clinically improved at this time defer further management to GI recs Hyperglycemia: Patient with labile BG likley in setting of poor PO intake and nausea/vomiting Patient reports having DM for 16 years and knowing how to adjust her insulin pending the premeal BG reading Defer further management to Endo recs Please see Resident note for additional information Continue management as per Primary Team. patient requests to be discharged home today
[2020-05-31] MEDS ORDERED: INSULIN (LEVEMIR) 100 UNITS/ML UNITS SQ SCH (22:00)
[2020-06-01] MEDS ORDERED: INSULIN (LEVEMIR) 100 UNITS/ML UNITS SQ SCH (07:00)
== END 2020-05-31 13:15 | disposition home or self-care (01) | DRG 566 ==
LOC: JER 08:34 → JERBED 11:05 → J3W 16:41 → OBSVTOIN 17:12
PROVIDERS: ADMIT Obstetrics & Gynecology; ATTEND Obstetrics & Gynecology
DX: O21.1 Hyperemesis gravidarum with metabolic disturbance (principal); E83.42 Hypomagnesemia; E86.0 Dehydration; O24.012 Pre-existing type 1 diabetes mellitus, in pregnancy, second trimester; E10.65 Type 1 diabetes mellitus with hyperglycemia; D72.829 Elevated white blood cell count, unspecified; Z3A.19 19 weeks gestation of pregnancy; Z79.4 Long term (current) use of insulin; F12.10 Cannabis abuse, uncomplicated; O99.342 Other mental disorders complicating pregnancy, second trimester; F31.9 Bipolar disorder, unspecified; O13.2 Gestational [pregnancy-induced] hypertension without significant proteinuria, second trimester; R74.0 Nonspecific elevation of levels of transaminase and lactic acid dehydrogenase [LDH]
CPT/HCPCS: 36415; 80048; 80053; 80074; 80307; 81003; 82962; 83036; 83735; 84100; 84439; 84443; 84703; 85025; 85027; 87086; 93005; 93010; 99285-25; G0378; J0131